=== PATIENT | female | born 1940 | race American Indian/Alaskan Native ===

== ENCOUNTER 2024-06-11 08:21 | Inpatient (IN) | payer OTHER, MEDICAID ==
[~2024-06-11] VITALS: Ht 149.9 cm; Wt 44.7 kg
[2024-06-11] VITALS (8 sets, daily range): BP systolic 121–143; BP diastolic 73–94; PULSE 100–117; RESP 17–95; TEMP 98.1–99.1; O2SAT 90–100
--- NOTE | 2024-06-11 08:59 | ED.PDOC ---
History of Present Illness HPI Comments 84-year-old female brought in by EMS from [facility] for a pulmonary consultation. Patient was diagnosed with multifocal pneumonia, given Zosyn and Levaquin and was transferred to higher level of care for a pulmonary consultation due to failed inpatient and outpatient treatment. Patient is non- hypoxic at this time. No other symptoms or modifying factors present at this time. Chief Complaint: Abdominal Pain Time Seen by MD: 08:40 Primary Care Provider: SURINDER Reviewed Notes: Medications, Allergies Allergies: Coded Allergies: Penicillins (Verified Allergy, Severe, 06/11/24) Sulfa Antibiotics (Verified Allergy, Severe, 06/11/24) Information Source: Transfer Record, Emergency Med Personnel Mode of Arrival: EMS Severity: Moderate Timing: Days Duration: Since onset Prehospital treatment: None Past Medical History PAST MEDICAL HISTORY: Denies Surgical History: Denies all surgeries [employer] RE[employer]ER History: Denies all [employer] Hx Family History Family History: Reviewed,noncontributory to illness Social History Smoker: Non-Smoker Alcohol: Denies ETOH Use Drugs: Denies Drug Use Lives In: Home Constitutional: denies: chills, diaphoresis, fatigue, fever, malaise, sweats, weakness, others EENTM: denies: blurred vision, double vision, ear bleeding, ear discharge, ear drainage, ear pain, ear ringing, eye pain, eye redness, hearing loss, mouth pain, mouth swelling, nasal discharge, nose bleeding, nose congestion, nose pain, photophobia, tearing, throat pain, throat swelling, voice changes, others Respiratory: reports: cough, shortness of breath; denies: hemoptysis, orthopnea, SOB at rest, SOB with excertion, stridor, wheezing, others Cardiovascular: denies: chest pain, dizzy spells, diaphoresis, Dyspnea on exertion, edema, irregular heart beat, left arm pain, lightheadedness, palpitations, PND, syncope, others Gastrointestinal: denies: abdomen distended, abdominal pain, blood streaked bowels, constipated, diarrhea, dysphagia, difficulty swallowing, hematemesis, melena, nausea, poor appetite, poor fluid intake, rectal bleeding, rectal pain, vomiting, others Genitourinary: denies: abnormal vagina bleeding, burning, dyspareunia, dysuria, flank pain, frequency, hematuria, incontinence, pain, , vagina disch arge, urgency, others Neurological: denies: dizziness, fainting, headache, left sided numbness, left sided weakness, numbness, paresthesia, pre-existing deficit, right sided numbness, right sided weakness, seizure, speech problems, tingling, tremors, weakness, others Musculoskeletal: denies: back pain, gout, joint pain, joint swelling, muscle pain, muscle stiffness, neck pain, others Integumetry: denies: bruises, change in color, change in hair/nails, dryness, laceration, lesions, lumps, rash, wounds, others Allergic/Immunocompromised: denies: Difficulty Healing, Frequent Infections, Hives, Itching, others Hematologic/Lymphatic: denies: anemia, blood clots, easy bleeding, easy bruising, swollen glands, others Endocrine: denies: excessive hunger, excessive sweating, excessive thirst, excessive urination, flushing, intolerance to cold, intolerance to heat, unexplained weight gain, unexplained weight loss, others Psychiatric: denies: anxiety, bipolar disorder, depression, hopeless, panic disorder, schizophrenia, sleepless, suicidal, others All Other Systems: Reviewed and Negative Physical Exam General Appearance: No Apparent Distress, Normal HEENT: Normal ENT Inspection, Pharynx Normal, TMs Normal Neck: Full Range of Motion, Non-Tender, Normal, Normal Inspection Respiratory: Chest Non-Tender, Lungs Clear, No Accessory Muscle Use, No Respiratory Distress, Normal Breath Sounds Cardiovascular: No Edema, No JVD, No Murmur, No Gallop, Normal Peripheral Pulses, Regular Rate/Rhythm Breast Exam: Deferred Gastrointestinal: No Organomegaly, Non Tender, No Pulsatile Mass, Normal Bowel Sounds, Soft Genitalia: Deferred Pelvic: Deferred Rectal: Deferred Extremities: No calf tenderness, Normal capillary refill, Normal inspection, Normal range of motion, Non-tender, No pedal edema Musculoskeletal : Apperance: Normal Neurologic: Alert, instructional developer II-XII nml as Tested, No Motor Deficits, Normal Affect, Normal Mood, No Sensory Deficits Cerebellar Function: Normal Reflexes: Normal Skin: Dry, Normal Color, Warm Lymphatic: No Adenopathy Was a procedure done? Was a procedure done?: No Differential Dx Considerations may include: Multifocal pneumonia X-Ray, Labs, Meds, VS Vital Signs Date Time Temp Pulse Resp B/P (MAP) Pulse Ox O2 Delivery O2 Flow Rate FiO2 06/11/24 08:55 100 20 92 Nasal Cannula* 2 28 06/11/24 08:55 99.1 100 20 143/94 (110) 92 99.1 06/11/24 08:21 98.4 69 16 153/90 (111) 97 Lab Test 06/11/24 09:00 Range/Units White Blood Count 4.7 4.4-10.8 10^3/uL Red Blood Count 4.11 4.0-5.20 10^6/uL Hemoglobin 11.5 L 12.2-16.2 g/dL Hematocrit 35.0 L 36.0-46.0 % Mean Corpuscular Volume 85.3 80.0-100.0 fL Mean Corpuscular Hemoglobin 27.9 L 28.0-32.0 pg Mean Corpuscular Hemoglobin Concent 32.7 32.0-36.0 g/dL Red Cell Distribution Width 18.2 H 11.8-14.3 % Platelet Count 308 140-450 10^3/uL Mean Platelet Volume 6.0 L 6.9-10.8 fL Neutrophils (%) (Auto) 37.0-80.0 % Lymphocytes (%) (Auto) 10.0-50.0 % Monocytes (%) (Auto) 0.0-12.0 % Basophils (%) (Auto) 0.0-2.0 % Neutrophils # (Auto) 1.6-8.6 10 ^3/uL Lymphocytes # (Auto) 0.4-5.4 10 ^3/uL Monocytes # (Auto) 0-1.3 10 ^3/uL Differential Total Cells Counted 100.0 100 Neutrophils % (Manual) 77 37.0-80.0 Band Neutrophils % (Manual) 4 Lymphocytes % (Manual) 10 10.0-50.0 Monocytes % (Manual) 8 0-12 Eosinophils % (Manual) 1 0-7 Basophils % (Manual) 0 0.0-2.0 Metamyelocytes % (manual) 0 Myelocytes % (Manual) 0 Promyelocytes % (Manual) 0 Blast Cells % (Manual) 0 Reactive Lymphocytes 0 Platelet Estimate Adequate Anisocytosis (manual) Slight Sodium Level 136 136-145 mmol/L Potassium Level 3.1 L 3.5-5.1 mmol/L Chloride Level 102 98-107 mmol/L Carbon Dioxide Level 25 20-31 mmol/L Anion Gap 9 5-15 Blood Urea Nitrogen 13 9-23 mg/dL Creatinine 1.01 0.550-1.02 mg/dL Glomerular Filtration Rate Calc 55 >90 mL/min BUN/Creatinine Ratio 12.9 10.0-20.0 Serum Glucose 77 74-106 mg/dL Calcium Level 9.0 8.7-10.4 mg/dL Total Bilirubin 0.4 0.2-1.0 mg/dL Aspartate Amino Transferase (AST) 17 13-40 U/L Alanine Aminotransferase (ALT) 19 7-40 U/L Alkaline Phosphatase 94 46-116 U/L Troponin I High Sensitivity 18 </=34 ng/L Total Protein 6.1 5.7-8.2 g/dL Albumin 3.8 3.2-4.8 g/dL Time of 1ST Reevaluation: 09:10 Reevaluation 1ST: Unchanged Patient Education/Counseling: Diagnosis, Treatment, Prognosis Family Education/Counseling: Diagnosis, Treatment, Prognosis Departure 1 Departure Time of Disposition: 10:44 (Patient was a transfer from outside hospital for mu ltifocal pneumonia. He already received sepsis treatment at the outside hospital.) Impression: Primary Impression: Multifocal pneumonia Additional Impression: Shortness of breath Disposition: ADMITTED INPATIENT Admit to: Med Surg Condition: Serious Critical Care Note Critical Care Time?: No Stability Stability form required: No I personally scribed for PREETI SAMAYOA MD ([email or web address]) on 06/11/24 at 08:59. Electronically submitted by Chris Quiroz [email or web address]). PREETI SAMAYOA MD Jun 11, 2024 08:59
[2024-06-11 09:26] LABS: Hemoglobin 11.5 g/dL (12.2-16.2); Mean Corpuscular Hemoglobin 27.9 pg (28.0-32.0); Mean Corpuscular Hgb Conc. 32.7 g/dL (32.0-36.0); Mean Corpuscular Volume 85.3 fL (80.0-100.0); Platelet Count (auto) 308 10^3/uL (140-450); Red Blood Cells 4.11 10^6/uL (4.0-5.20); Red Cell Distribution Width 18.2 % (11.8-14.3); White Blood Cell 4.7 10^3/uL (4.4-10.8)
[2024-06-11 09:29] LABS: Basophils % (manual) 0 (0.0-2.0); Blast Cells 0; Metamyelocytes % 0; Myelocytes % 0; Promyelocytes % 0; Reactive Lymphocytes 0
[2024-06-11 09:36] LABS: Alanine Aminotransferase 19 U/L (7-40); Albumin 3.8 g/dL (3.2-4.8); Alkaline Phosphatase 94 U/L (46-116); Anion Gap 9 (5-15); Aspartate Aminotransferase 17 U/L (13-40); BUN/Creatinine Ratio 12.9 (10.0-20.0); Blood Urea Nitrogen 13 mg/dL (9-23); Carbon Dioxide 25 mmol/L (20-31); Chloride 102 mmol/L (98-107); Glucose 77 mg/dL (74-106)
[2024-06-11 09:37] LABS: Bilirubin, Total 0.4 mg/dL (0.2-1.0); Total Protein 6.1 g/dL (5.7-8.2)
[2024-06-11 09:48] LABS: Potassium 3.1 mmol/L (3.5-5.1); Sodium 136 mmol/L (136-145)
--- NOTE | 2024-06-11 09:50 | DVH ---
CHEST RADIOGRAPH Indication: c/f multifocal pneumonia Technique: Single frontal view of the chest was obtained COMPARISON: None FINDINGS: Lines and Tubes: None Lungs: Bibasilar consolidations may reflect pneumonia or aspiration. Pleura: Small bilateral effusions. No pneumothorax. Cardiomediastinal contours: Unremarkable Bones: Unremarkable IMPRESSION: 1. Bibasilar consolidations may reflect pneumonia or aspiration. 2. Small bilateral effusions.
[2024-06-11 09:56] LABS: Band Neutrophils % (manual) 4; Eosinophils % (manual) 1 (0-7); Lymphocytes % (manual) 10 (10.0-50.0); Monocytes % (manual) 8 (0-12)
[2024-06-11 09:57] LABS: Anisocytosis Slight; Platelet Estimate Adequate
[2024-06-11] MEDS ORDERED: CEFEPIME 2GM/50ML NS 50 ML IV ONE (10:45)
[2024-06-11] MEDS: CEFEPIME 2GM/50ML NS 50 ML IV ONE (12:31)
[2024-06-11] MEDS: VANCOMYCIN 1GM/250ML KIT 200 ML IV ONE (13:06)
[2024-06-11] MEDS ORDERED: ACETAMINOPHEN 325 MG TAB PO PRN (15:15)
[2024-06-11] MEDS ORDERED: ALBUTEROL SULF 2.5 MG/0.5ML(0.5%) NEB SOLN NEB SCH (15:15)
[2024-06-11] MEDS ORDERED: NITROGLYCERIN 0.4 MG SL TAB SL PRN (15:15)
[2024-06-11] MEDS ORDERED: IPRATROPIUM BROM 0.5 MG/2.5ML INH SOL NEB SCH (15:15)
[2024-06-11] MEDS: methylPREDNISolone SOD SUCC 125 MG/2 ML VL IV SCH (16:08)
[2024-06-11] MEDS: guaiFENesin-CODEINE Liq 5 ML UD PO SCH (16:08)
--- NOTE | 2024-06-11 17:31 | DVHHP2 ---
Admitting Diagnosis: Multifocal Pneumonia History of Present Illness HPI Patient is a 84-year-old female with past medical history of COPD who was transferred from [facility] due to concerns of failed pneumonia treatment. Patient was recently admitted and seen at [facility] and was discharged 2 days prior. Patient notes that she began having bodyaches, abdominal pain and worsening shortness of breath. Patient returned to the ER for reevaluation. Patient was ultimately transferred to [facility] for pulmonary consultation. At bedside, patient complains of weakness, body aches and productive cough. Patient was reportedly started on sepsis protocol at [facility]. Patient was treated again with vancomycin and cefepime here at [facility]. At the time of my evaluat ion, patient did not have signs of severe sepsis. Chest x-ray showed bibasilar consolidations likely pneumonia or aspiration. There is also small bilateral pleural effusions. Patient reportedly had a CT abdomen done at [facility] which did not reveal any acute abnormalities. Patient was admitted for further treatment of multifocal pneumonia and pulmonary consultation. Past Medical History Pulmonary: COPD Review of Systems Constitutional: Weakness Pulmonary/Respiratory: Dyspnea, Cough Gastrointestinal: Nausea, Abdominal Pain H&P Exam Vital Signs Vital Signs Date Time Temp Pulse Resp B/P (MAP) Pulse Ox O2 Delivery O2 Flow Rate FiO2 06/11/24 16:44 80 20 100 Room Air 10.0 06/11/24 16:44 99.5 148/96 (113) 99.5 06/11/24 15:41 28 General Appeara: Mild distress Pulmonary/Respiratory: Crackles Cardiovascular/Chest: Regular rate Labs/Xrays Labs Test 06/11/24 11:30 06/11/24 09:00 Range/Units Lactic Acid Level 0.6 0.4-2.0 mmol/L White Blood Count 4.7 4.4-10.8 10^3/uL Red Blood Count 4.11 4.0-5.20 10^6/uL Hemoglobin 11.5 L 12.2-16.2 g/dL Hematocrit 35.0 L 36.0-46.0 % Mean Corpuscular Volume 85.3 80.0-100.0 fL Mean Corpuscular Hemoglobin 27.9 L 28.0-32.0 pg Mean Corpuscular Hemoglobin Concent 32.7 32.0-36.0 g/dL Red Cell Distribution Width 18.2 H 11.8-14.3 % Platelet Count 308 140-450 10^3/uL Mean Platelet Volume 6.0 L 6.9-10.8 fL Neutrophils (%) (Auto) 37.0-80.0 % Lymphocytes (%) (Auto) 10.0-50.0 % Monocytes (%) (Auto) 0.0-12.0 % Basophils (%) (Auto) 0.0-2.0 % Neutrophils # (Auto) 1.6-8.6 10 ^3/uL Lymphocytes # (Auto) 0.4-5.4 10 ^3/uL Monocytes # (Auto) 0-1.3 10 ^3/uL Differential Total Cells Counted 100.0 100 Neutrophils % (Manual) 77 37.0-80.0 Band Neutrophils % (Manual) 4 Lymphocytes % (Manual) 10 10.0-50.0 Monocytes % (Manual) 8 0-12 Eosinophils % (Manual) 1 0-7 Basophils % (Manual) 0 0.0-2.0 Metamyelocytes % (manual) 0 Myelocytes % (Manual) 0 Promyelocytes % (Manual) 0 Blast Cells % (Manual) 0 Reactive Lymphocytes 0 Platelet Estimate Adequate Anisocytosis (manual) Slight Sodium Level 136 136-145 mmol/L Potassium Level 3.1 L 3.5-5.1 mmol/L Chloride Level 102 98-107 mmol/L Carbon Dioxide Level 25 20-31 mmol/L Anion Gap 9 5-15 Blood Urea Nitrogen 13 9-23 mg/dL Creatinine 1.01 0.550-1.02 mg/dL Glomerular Filtration Rate Calc 55 >90 mL/min BUN/Creatinine Ratio 12.9 10.0-20.0 Serum Glucose 77 74-106 mg/dL Calcium Level 9.0 8.7-10.4 mg/dL Total Bilirubin 0.4 0.2-1.0 mg/dL Aspartate Amino Transferase (AST) 17 13-40 U/L Alanine Aminotransferase (ALT) 19 7-40 U/L Alkaline Phosphatase 94 46-116 U/L Troponin I High Sensitivity 18 </=34 ng/L B-Type Natriuretic Peptide 833.82 0-100 pg/mL Total Protein 6.1 5.7-8.2 g/dL Albumin 3.8 3.2-4.8 g/dL Assessment/Plan Primary Diagnosis 1. Multifocal Pneumonia 2' Diagnosis/Co-morbidities 2. History of COPD 3. Concern for Underlying CHF Plan -Admit to telemetry -Pulmonary consulted, Dr. Martin -Cardiology consulted, Dr. Madrid. TTE ordered -Levaquin 750mg IV qdaily -Duonebs, solumedrol as scheduled -Lasix 40mg IV x1 -Strict I/O -Procacitonin ordered -Influenza/COVID ordered -Pain medications listed per MAR -Full Code Plan discussed with: Patient HUAN HERNANDEZ DO Jun 11, 2024 17:31
[2024-06-11 18:21] LABS: COVID19 ANTIGEN SOFIA FIA NEGATIVE (NEGATIVE); Rapid Influenza A Negative (Negative); Rapid Influenza B Negative (Negative)
[2024-06-11] MEDS: FUROSEMIDE 40 MG/4 ML VIAL IV ONE (18:29)
[2024-06-11] MEDS: IPRATROPIUM BROM 0.5 MG/2.5ML INH SOL NEB SCH (19:08)
[2024-06-11] MEDS: ALBUTEROL SULF 2.5 MG/0.5ML(0.5%) NEB SOLN NEB SCH (19:08)
[2024-06-11 20:52] LABS: Urine Bacteria None Seen /hpf (None Seen)
[2024-06-11] MEDS: levoFLOXacin 250 MG TAB PO SCH (20:52)
[2024-06-11 20:56] LABS: Urine Blood Negative /uL (Negative); Urine Clarity Clear (Clear); Urine Color Colorless (Yellow); Urine Protein, UAD Negative (Negative); Urine Specific Gravity 1.014 (1.001-1.035); Urine Squamous Epithelial Cell None Seen /hpf (<5); Urine Urobilinogen Normal (Negative); Urine WBC 5 /HPF (0-5)
[2024-06-11] MEDS: HYDROcodone-ACET 5/325MG TAB PO PRN (22:09)
[2024-06-11] MEDS: POTASSIUM CHL 20 Meq TABLET PO ONE (22:09)
--- NOTE | 2024-06-11 23:41 | DVHINCON2 ---
Date of service: Jun 11, [address] Tony Martin Reason for Consultation Acute hypoxic respiratory failure, multifocal pneumonia, pleural effusion History of Present Illness Covering Dr. Tony Martin An 84-year-old woman with past medical history of COPD who was transferred from [facility] today due to concerns of failed pneumonia treatment. Patient was recently admitted at [place] [facility] and was discharged 2 days prior. Patient notes that she began having body aches, abdominal pain and worsening shortness of breath and returned to the ER for reevaluation. Patient was ultimately transferred to [facility] for pulmonary consultation. Patient complains of weakness, body aches and productive cough. She was reportedly started on sepsis protocol at [facility]. Chest x-ray showed bibasilar consolidations, likely pneumonia or aspiration, and small bilateral pleural effusions. CT abdomen at [facility] did not reveal any acute abnormalities. Patient was admitted for further treatment of multifocal pneumonia and pulmonary consultation is requested due to the above findings. Review of Systems: 14-point review of systems negative unless otherwise noted above. Past Medical History: COPD Past Surgical History: None Medications: Reviewed. Allergies: Penicillins and sulfa antibiotics. Family History: No family history of premature CAD. No family history of lung disorders. Social History: Nonsmoker. No alcohol or illicit drug use. Allergies: Coded Allergies: Penicillins (Verified Allergy, Severe, 06/11/24) Sulfa Antibiotics (Verified Allergy, Severe, 06/11/24) Current Medications Current Medications Medications (Trade) Dose Ordered Sig/Noe Route PRN Reason Start Time Stop Time Status Last Admin Acetaminophen (Tylenol Tablet) 325 mg Q4HP PRN PO MILD PAIN (1-3 PAIN SCALE) 06/11/24 15:15 Acetaminophen/ Hydrocodone Bitart ([place] 5/325MG Tab) 1 tab Q4HP PRN PO MODERATE PAIN (4-6 PAIN SCALE) 06/11/24 15:15 06/11/24 22:09 Enoxaparin Sodium (Lovenox) 30 mg DAILY SC 06/12/24 10:00 Morphine Sulfate 2 mg Q4HPRN PRN IV SEVERE PAIN (7-10 PAIN SCALE) 06/11/24 15:15 Nitroglycerin (Ntrostat Sublingual) 0.4 mg Q5MINP PRN SL FOR CHEST PAIN 06/11/24 15:15 Morphine Sulfate 2 mg Q30M PRN IV FOR CHEST PAIN 06/11/24 15:15 Ipratropium [place] (Atrovent Medneb) 0.5 mg Q6HR NEB 06/11/24 15:15 06/11/24 15:35 DC Albuterol (Ventolin Medneb) 5 mg Q6HR NEB 06/11/24 15:15 06/11/24 15:35 DC Methylprednisolone Sodium Succinate (Solu Medrol) 80 mg DAILY IV 06/11/24 15:15 06/11/24 16:08 Guaifenesin/ Codeine Phosphate (Robitussin/ Codeine Liq) 5 ml Q8HP PO 06/11/24 15:30 06/11/24 22:08 Albuterol (Ventolin Medneb) 5 mg Q6HR NEB 06/11/24 18:00 06/11/24 19:08 Ipratropium [place] (Atrovent Medneb) 0.5 mg Q6HR NEB 06/11/24 18:00 06/11/24 19:08 Levofloxacin/ Dextrose 150 ml @ 100 mls/hr DAILY IV 06/12/24 10:00 06/11/24 18:53 DC Levofloxacin (Levaquin Tablet) 750 mg Q48H PO 06/11/24 20:00 06/11/24 20:52 Vital Signs Vital Signs Date Time Temp Pulse Resp B/P (MAP) Pulse Ox O2 Delivery O2 Flow Rate FiO2 06/11/24 20:14 100 19 99 Nasal Cannula* 2 28 06/11/24 19:30 98.9 137/89 (105) 98.9 Physical Exam Gen.: Patient lying in bed in no apparent distress. On supplemental oxygen. Head: Normocephalic, atraumatic. Eyes: EOMI/PERRLA. Ears: Normal hearing. Normal anatomy. Neck/trachea: Trachea midline, supple. Nose: Normal external anatomy. Mouth: Moist mucous membranes. Chest: Decreased air entry bilaterally. No wheezing or rhonchi. Cardiovascular: Positive S1, positive S2. Regular rate and rhythm. Abdomen: Positive bowel sounds in all 4 quadrants. Soft, non-tender, non- distended. : Deferred. Rectal: Deferred. Skin: Warm, dry. Intact. Extremities: 2+ radial pulses bilaterally. No lower extremity edema. Neuro: Awake, alert, oriented x3. No gross motor or sensory deficits. Cranial nerves II through XII intact. Gait not assessed. Labs/Diagnostic Data Labs Test 06/11/24 20:50 06/11/24 17:42 06/11/24 11:30 06/11/24 09:00 Range/Units Urine Color Colorless Yellow Urine Clarity Clear Clear Urine pH 7.0 5.0-9.0 Urine Specific [place] 1.014 1.001-1.035 Urine Protein Negative Negative Urine Ketones Negative Negative Urine Blood Negative Negative /uL Urine Nitrite Negative Negative Urine Bilirubin Negative Negative Urine Urobilinogen Normal Negative mg/dL Urine Leukocyte Esterase Negative Negative /uL Urine RBC 2 0 - 4 /hpf Urine Microscopic WBC 5 0-5 /HPF Urine Squamous Epithelial Cells None seen <5 /hpf Urine Bacteria None seen None Seen /hpf Urine Glucose Normal Normal mg/dL Influenza Type A Antigen Negative Negative Influenza Type B Antigen Negative Negative SARS-CoV-2 Antigen (Rapid) Negative NEGATIVE Lactic Acid Level 0.6 0.4-2.0 mmol/L White Blood Count 4.7 4.4-10.8 10^3/uL Red Blood Count 4.11 4.0-5.20 10^6/uL Hemoglobin 11.5 L 12.2-16.2 g/dL Hematocrit 35.0 L 36.0-46.0 % Mean Corpuscular Volume 85.3 80.0-100.0 fL Mean Corpuscular Hemoglobin 27.9 L 28.0-32.0 pg Mean Corpuscular Hemoglobin Concent 32.7 32.0-36.0 g/dL Red Cell Distribution Width 18.2 H 11.8-14.3 % Platelet Count 308 140-450 10^3/uL Mean Platelet Volume 6.0 L 6.9-10.8 fL Neutrophils (%) (Auto) 37.0-80.0 % Lymphocytes (%) (Auto) 10.0-50.0 % Monocytes (%) (Auto) 0.0-12.0 % Basophils (%) (Auto) 0.0-2.0 % Neutrophils # (Auto) 1.6-8.6 10 ^3/uL Lymphocytes # (Auto) 0.4-5.4 10 ^3/uL Monocytes # (Auto) 0-1.3 10 ^3/uL Differential Total Cells Counted 100.0 100 Neutrophils % (Manual) 77 37.0-80.0 Band Neutrophils % (Manual) 4 Lymphocytes % (Manual) 10 10.0-50.0 Monocytes % (Manual) 8 0-12 Eosinophils % (Manual) 1 0-7 Basophils % (Manual) 0 0.0-2.0 Metamyelocytes % (manual) 0 Myelocytes % (Manual) 0 Promyelocytes % (Manual) 0 Blast Cells % (Manual) 0 Reactive Lymphocytes 0 Platelet Estimate Adequate Anisocytosis (manual) Slight Sodium Level 136 136-145 mmol/L Potassium Level 3.1 L 3.5-5.1 mmol/L Chloride Level 102 98-107 mmol/L Carbon Dioxide Level 25 20-31 mmol/L Anion Gap 9 5-15 Blood Urea Nitrogen 13 9-23 mg/dL Creatinine 1.01 0.550-1.02 mg/dL Glomerular Filtration Rate Calc 55 >90 mL/min BUN/Creatinine Ratio 12.9 10.0-20.0 Serum Glucose 77 74-106 mg/dL Calcium Level 9.0 8.7-10.4 mg/dL Total Bilirubin 0.4 0.2-1.0 mg/dL Aspartate Amino Transferase (AST) 17 13-40 U/L Alanine Aminotransferase (ALT) 19 7-40 U/L Alkaline Phosphatase 94 46-116 U/L Troponin I High Sensitivity 18 </=34 ng/L B-Type Natriuretic Peptide 833.82 0-100 pg/mL Total Protein 6.1 5.7-8.2 g/dL Albumin 3.8 3.2-4.8 g/dL Assessment Impression: Acute hypoxic respiratory failure Dependence on supplemental oxygen Multifocal pneumonia, likely gram negative Pleural effusion Atelectasis Covering Dr. Tony Martin Plan: Supplemental oxygen 2 LPM NC Titrate to keep O2 sats above 92%. Taper O2 as tolerated. CXR reviewed, demonstrates bibasilar opacities and small bilateral pleural effusions and atelectasis Continue bronchodilators. Continue antibiotics IV steroids Antitussive PRN cough Incentive spirometry Follow up cultures Diurese to euvolemia Monitor renal function. Monitor electrolytes. Supplement as necessary. Supplement potassium Monitor ins and outs. DVT prophylaxis. Prognosis: Poor given patient's multiple co-morbidities. Rest of plan per hospitalist and other consultants. A total of 76 minutes of clinical care time was spent reviewing the patient record, examining the patient, making a diagnostic and therapeutic plan, discussing this plan with the medical personnel, following up on diagnostic studies and following the patient for clinical stability excluding any and all procedures. At least 50% of this time was spent in direct, [id number] contact. Thank you, Dr. Tobar, for allowing me to participate in this patient's care. Further recommendations will depend on the patient's clinical course. Please do not hesitate to contact me if you have any questions or concerns. This medical document was created using an electronic medical record system with [employer] dictation system. Although these documentations are being carefully reviewed, there may still be some phonetic and typographical changes. The errors are purely typographical, due to imperfection on the software program , and do not reflect any compromise in the patient's medical care. Plan discussed with: Patient, Other (RN/Dr. Martin) TRAVIS LEVINE MD Jun 11, 2024 23:41
[2024-06-12] VITALS (17 sets, daily range): BP systolic 93–136; BP diastolic 74–87; PULSE 60–84; RESP 16–20; TEMP 97.6–98.1; O2SAT 93–100
[2024-06-12] MEDS: MORPHINE SULFATE INJ 2 MG/ml SYRG IV PRN ×2 (01:34→17:06)
[2024-06-12] MEDS: LACTULOSE 20Gm/30ML SOLN PO ONE (04:47)
[2024-06-12 08:01] LABS: Alanine Aminotransferase 21 U/L (7-40); Albumin 4.3 g/dL (3.2-4.8); Alkaline Phosphatase 102 U/L (46-116); Anion Gap 10 (5-15); Aspartate Aminotransferase 15 U/L (13-40); BUN/Creatinine Ratio 12.8 (10.0-20.0); Bilirubin, Total 0.4 mg/dL (0.2-1.0); Blood Urea Nitrogen 18 mg/dL (9-23); Calcium 9.7 mg/dL (8.7-10.4); Carbon Dioxide 27 mmol/L (20-31); Chloride 101 mmol/L (98-107); Glucose 81 mg/dL (74-106); Potassium 3.6 mmol/L (3.5-5.1); Sodium 138 mmol/L (136-145)
[2024-06-12 08:04] LABS: Hematocrit 38.5 % (36.0-46.0); Hemoglobin 12.5 g/dL (12.2-16.2); Mean Corpuscular Hemoglobin 28.2 pg (28.0-32.0); Mean Corpuscular Hgb Conc. 32.5 g/dL (32.0-36.0); Mean Corpuscular Volume 86.9 fL (80.0-100.0); Platelet Count (auto) 318 10^3/uL (140-450); Red Blood Cells 4.43 10^6/uL (4.0-5.20); Red Cell Distribution Width 18.6 % (11.8-14.3); White Blood Cell 4.4 10^3/uL (4.4-10.8)
[2024-06-12 08:08] LABS: Basophils % (manual) 0 (0.0-2.0); Blast Cells 0; Eosinophils % (manual) 0 (0-7); Metamyelocytes % 0; Myelocytes % 0; Promyelocytes % 0; Reactive Lymphocytes 0
[2024-06-12 08:55] LABS: Anisocytosis Slight; Band Neutrophils % (manual) 4; Lymphocytes % (manual) 11 (10.0-50.0); Monocytes % (manual) 10 (0-12); Platelet Estimate Adequate
--- NOTE | 2024-06-12 09:15 | DVHINCON2 ---
Date of service: Jun 12, 2024 Referring Physician pulm ref by dr buchanan dictated [id number] add 1 zithrimax 500 i v q d 2 add c t scan chest without contrast 3 g f r is low imp bilateral pneum onia 2 resp failure 3 c o p d exacerbation 4 r / o c h f / cor pulmonale thank you case discussed with dr buchanan Family History: Patient reports no known family medical history. Allergies: Coded Allergies: Penicillins (Verified Allergy, Severe, 06/11/24) Sulfa Antibiotics (Verified Allergy, Severe, 06/11/24) Home Meds Active Scripts Amoxicillin & Pot Clavulanate (AUGMENTIN TABLET) 875 Mg Tb, 875 MG PO BID for 10 Days, #20 TAB Prov:ANU JI MD 06/15/24 Reported Medications Tiotropium [place] Monohydrate (Spiriva Handihaler) 18 Mcg Cap, 2.5 MCG IN, CAP 06/12/24 Levothyroxine Sodium (Levothyroxine Sodium) 125 Mcg Tab, 125 MCG PO QAM for 30 Days, MCG 06/12/24 Albuterol Sulfate (Albuterol Sulfate) 2 Mg Tab, 0.25 PO Q6HP, MG 06/12/24 Aspirin (Aspirin) 325 Mg Tab, 81 MG PO DAILY for 30 Days, MG 06/12/24 Levofloxacin Hemihydrate (LEVOFLOXACIN) 500 Mg Tab, 500 MG PO DAILY, MG 06/12/24 Current Medications Current Medications Medications (Trade) Dose Ordered Sig/Noe Route PRN Reason Start Time Stop Time Status Last Admin Acetaminophen (Tylenol Tablet) 325 mg Q4HP PRN PO MILD PAIN (1-3 PAIN SCALE) 06/11/24 15:15 Acetaminophen/ Hydrocodone Bitart ([place] 5/325MG Tab) 1 tab Q4HP PRN PO MODERATE PAIN (4-6 PAIN SCALE) 06/11/24 15:15 06/11/24 22:09 Enoxaparin Sodium (Lovenox) 30 mg DAILY SC 06/12/24 10:00 Morphine Sulfate 2 mg Q4HPRN PRN IV SEVERE PAIN (7-10 PAIN SCALE) 06/11/24 15:15 06/12/24 01:34 Nitroglycerin (Ntrostat Sublingual) 0.4 mg Q5MINP PRN SL FOR CHEST PAIN 06/11/24 15:15 Morphine Sulfate 2 mg Q30M PRN IV FOR CHEST PAIN 06/11/24 15:15 Ipratropium [place] (Atrovent Medneb) 0.5 mg Q6HR NEB 06/11/24 15:15 06/11/24 15:35 DC Albuterol (Ventolin Medneb) 5 mg Q6HR NEB 06/11/24 15:15 06/11/24 15:35 DC Methylprednisolone Sodium Succinate (Solu Medrol) 80 mg DAILY IV 06/11/24 15:15 06/11/24 16:08 Guaifenesin/ Codeine Phosphate (Robitussin/ Codeine Liq) 5 ml Q8HP PO 06/11/24 15:30 06/12/24 06:42 Albuterol (Ventolin Medneb) 5 mg Q6HR NEB 06/11/24 18:00 06/12/24 07:00 Ipratropium [place] (Atrovent Medneb) 0.5 mg Q6HR NEB 06/11/24 18:00 06/12/24 07:00 Levofloxacin/ Dextrose 150 ml @ 100 mls/hr DAILY IV 06/12/24 10:00 06/11/24 18:53 DC Levofloxacin (Levaquin Tablet) 750 mg Q48H PO 06/11/24 20:00 06/11/24 20:52 Vital Signs Vital Signs Date Time Temp Pulse Resp B/P (MAP) Pulse Ox O2 Delivery O2 Flow Rate FiO2 06/12/24 08:00 97.6 73 20 134/75 (94) 94 97.6 06/12/24 07:01 Nasal Cannula* 3 32 Labs/Diagnostic Data Labs Test 06/12/24 06:49 06/11/24 20:50 06/11/24 17:42 06/11/24 11:30 Range/Units White Blood Count 4.4 4.4-10.8 10^3/uL Red Blood Count 4.43 4.0-5.20 10^6/uL Hemoglobin 12.5 12.2-16.2 g/dL Hematocrit 38.5 36.0-46.0 % Mean Corpuscular Volume 86.9 80.0-100.0 fL Mean Corpuscular Hemoglobin 28.2 28.0-32.0 pg Mean Corpuscular Hemoglobin Concent 32.5 32.0-36.0 g/dL Red Cell Distribution Width 18.6 H 11.8-14.3 % Platelet Count 318 140-450 10^3/uL Mean Platelet Volume 6.1 L 6.9-10.8 fL Neutrophils (%) (Auto) 37.0-80.0 % Lymphocytes (%) (Auto) 10.0-50.0 % Monocytes (%) (Auto) 0.0-12.0 % Basophils (%) (Auto) 0.0-2.0 % Neutrophils # (Auto) 1.6-8.6 10 ^3/uL Lymphocytes # (Auto) 0.4-5.4 10 ^3/uL Monocytes # (Auto) 0-1.3 10 ^3/uL Differential Total Cells Counted 100.0 100 Neutrophils % (Manual) 75 37.0-80.0 Band Neutrophils % (Manual) 4 Lymphocytes % (Manual) 11 10.0-50.0 Monocytes % (Manual) 10 0-12 Eosinophils % (Manual) 0 0-7 Basophils % (Manual) 0 0.0-2.0 Metamyelocytes % (manual) 0 Myelocytes % (Manual) 0 Promyelocytes % (Manual) 0 Blast Cells % (Manual) 0 Reactive Lymphocytes 0 Platelet Estimate Adequate Anisocytosis (manual) Slight Sodium Level 138 136-145 mmol/L Potassium Level 3.6 3.5-5.1 mmol/L Chloride Level 101 98-107 mmol/L Carbon Dioxide Level 27 20-31 mmol/L Anion Gap 10 5-15 Blood Urea Nitrogen 18 9-23 mg/dL Creatinine 1.41 #H 0.550-1.02 mg/dL Glomerular Filtration Rate Calc 37 >90 mL/min BUN/Creatinine Ratio 12.8 10.0-20.0 Serum Glucose 81 74-106 mg/dL Calcium Level 9.7 8.7-10.4 mg/dL Total Bilirubin 0.4 0.2-1.0 mg/dL Aspartate Amino Transferase (AST) 15 13-40 U/L Alanine Aminotransferase (ALT) 21 7-40 U/L Alkaline Phosphatase 102 46-116 U/L Total Protein 7.0 5.7-8.2 g/dL Albumin 4.3 3.2-4.8 g/dL Urine Color Colorless Yellow Urine Clarity Clear Clear Urine pH 7.0 5.0-9.0 Urine Specific [place] 1.014 1.001-1.035 Urine Protein Negative Negative Urine Ketones Negative Negative Urine Blood Negative Negative /uL Urine Nitrite Negative Negative Urine Bilirubin Negative Negative Urine Urobilinogen Normal Negative mg/dL Urine Leukocyte Esterase Negative Negative /uL Urine RBC 2 0 - 4 /hpf Urine Microscopic WBC 5 0-5 /HPF Urine Squamous Epithelial Cells None seen <5 /hpf Urine Bacteria None seen None Seen /hpf Urine Glucose Normal Normal mg/dL Influenza Type A Antigen Negative Negative Influenza Type B Antigen Negative Negative SARS-CoV-2 Antigen (Rapid) Negative NEGATIVE Lactic Acid Level 0.6 0.4-2.0 mmol/L Test 06/11/24 09:00 Range/Units Troponin I High Sensitivity 18 </=34 ng/L B-Type Natriuretic Peptide 833.82 0-100 pg/mL Plan discussed with: Patient MEME TRACEY MD Jun 12, 2024 09:15
[2024-06-12] MEDS ORDERED: levoFLOXacin 750MG 150 ML IV SCH (10:00)
--- NOTE | 2024-06-12 10:20 | DVHINCON2 ---
DATE OF CONSULTATION: 06/12/2024 HISTORY OF PRESENT ILLNESS: The patient is an 84-year-old female with a long history of COPD smoking in the past, transferred from [facility] for bilateral pneumonia, headaches, shortness of breath, hypoxemia. She has a nasal cannula at this time and bilateral pneumonia. CT done at [facility] did not reveal any abnormalities and admitted here for further management. PHYSICAL EXAMINATION: VITAL SIGNS: She is afebrile, heart rate is 88, blood pressure is 140/70. She is on 3 liters of oxygen at this time, maintaining O2 saturation above 92%. HEENT: Benign. NECK: Trachea is central. LUNGS: Diminished breath sounds bilaterally on examination and rales and rhonchi in both lung rosales. Diminished breath sounds at the bases. LABORATORY DATA: Lactic acid 8.6, white count 4.7, hemoglobin 11.5. COVID is negative. SARS, influenza A and B are negative. Potassium has come up to 3.6 now, was low when she came in. IMPRESSION: Bilateral pneumonia, chronic obstructive pulmonary disease exacerbation, respiratory failure, hypoxemia. PLAN: She is getting Levaquin 750 every 48 hours, guanfacine p.r.n., Solu-Medrol 80 every day, DuoNeb treatments. Continue all the medications she is on at this time. Agree with your plan and management. He Martin MD MA/KARMEN/GATITO TID: [id number] RECEIPT: [id number]
--- NOTE | 2024-06-12 10:31 | DVH ---
INDICATION: KASSIE TECHNIQUE: Multiple real-time sonographic images of the kidneys and bladder were obtained. COMPARISON: None FINDINGS: The right kidney measures 12 cm in length, which is normal in size. There is normal echogenicity of t he right kidney. The left kidney measures 11 cm in length, which is normal in size. There is normal echogenicity of th e left kidney. No large intraluminal masses are seen in the bladder. Moderate bilateral hydronephrosis. IMPRESSION: Moderate bilateral hydronephrosis.
[2024-06-12] MEDS: ENOXAPARIN SOD 30 MG/0.3 ML SYRINGE SC SCH (10:34)
[2024-06-12] MEDS: AZITHROMYCIN 500MG/ 250ML 250 ML IV SCH (10:40)
--- NOTE | 2024-06-12 12:24 | DVH ---
Procedure: CT CHEST WITHOUT CONTRAST Reason for study/Clinical History: Multlifocal pneumonia Comparison Study: None available at time of dictation. Exam Date: 06/12/2024 10:58 AM TECHNIQUE: Multidetector CT of the chest was performed from the lung apices to the upper abdomen with out the use of intravenous contract. Axial, coronal and sagittal multiplanar reformats were performed . Radiation Dose Information: CT Dose: CTDI volume is [CTDIvol] mGy. Dose-length product is [DLP] mGy*cm The dose indicators for CT are the volume Computed Tomography (CT) Dose Index (CTDIvol) and the Dose Length Product (DLP), and are measured in units of mGy and mGy-cm, respectively. These indicators are not patient dose, but values generated from the CT scanner acquisition factors. The report includes radiation exposure data for exposures received during this examination. FINDINGS: Lower neck: Normal thyroid. Lungs: Mild focal infiltrate right lower lobe. There is bronchial wall thickening in both lower lung zones. Heart/Vascular Structures: Heart size is enlarged without pericardial effusion. There is a lipoma in the right atrium. The aorta is tortuous but nonaneurysmal. Lymph Nodes: No adenopathy Pleura: Pleural thickening in the lung bases. Small right pleural effusion Musculoskeletal: No acute osseous abnormality. Soft tissues: Normal. Upper abdomen: Retrocardiac hiatal hernia. Moderate bilateral hydronephrosis. IMPRESSION: 1. Focal infiltrate right lower lobe. Bilateral lower lobe bronchiectasis. Small right pleural effusi on. 2. Cardiomegaly. 3. Retrocardiac hiatal hernia. Moderate bilateral hydronephrosis. Radiation optimization: All CT scans at this facility use at least one of these dose optimization diamond hniques: automated exposure control mA and/or kV adjustment per patient size (includes targeted exam s where dose is matched to clinical indication) or iterative reconstruction.
--- NOTE | 2024-06-12 13:36 | DVHPN2 ---
Progress Note - Dictate Date Seen: Jun 12, 2024 Medical Necessity Reason Pt with a Central, PICC or Fol: No Subjective Patient continues to complain of weakness and abdominal pain. vital signs Vital Sign Date Time Temp Pulse Resp B/P (MAP) Pulse Ox O2 Delivery O2 Flow Rate FiO2 06/12/24 11:37 60 18 97 06/12/24 11:30 Nasal Cannula* 3 32 06/12/24 08:00 97.6 134/75 (94) 97.6 Total Intake and Output 06/11/24 06/11/24 06/12/24 15:00 23:00 07:00 Intake Total 50 ml 500 ml Balance 50 ml 500 ml medications Current Medications Medications Dose Ordered Sig/Noe Route Start Time Stop Time Status Last Admin Dose Admin Acetaminophen 325 mg Q4HP PRN PO 06/11/24 15:15 Acetaminophen/ Hydrocodone Bitart 1 tab Q4HP PRN PO 06/11/24 15:15 06/11/24 22:09 1 TAB Enoxaparin Sodium 30 mg DAILY SC 06/12/24 10:00 06/12/24 10:34 30 MG Morphine Sulfate 2 mg Q4HPRN PRN IV 06/11/24 15:15 06/12/24 01:34 2 MG Nitroglycerin 0.4 mg Q5MINP PRN SL 06/11/24 15:15 Morphine Sulfate 2 mg Q30M PRN IV 06/11/24 15:15 Methylprednisolone Sodium Succinate 80 mg DAILY IV 06/11/24 15:15 06/12/24 10:34 80 MG Guaifenesin/ Codeine Phosphate 5 ml Q8HP PO 06/11/24 15:30 06/12/24 06:42 5 ML Albuterol 5 mg Q6HR NEB 06/11/24 18:00 06/12/24 11:30 5 MG Ipratropium [place] 0.5 mg Q6HR NEB 06/11/24 18:00 06/12/24 11:30 0.5 MG Levofloxacin 750 mg Q48H PO 06/11/24 20:00 06/11/24 20:52 750 MG Azithromycin 250 ml @ 125 mls/hr DAILY IV 06/12/24 10:00 06/12/24 10:40 125 MLS/HR objective General appearance: Frail appearing Respiratory: Coarse breath sounds Cardiovascular: Regular rate and rhythm, no murmurs. No edema Abdomen: Soft, nondistended, nontender, bowel sounds present MSK: Normal range of motion. Neuro: Alert Psych: Appropriate mood and affect. laboratory and microbiology Laboratory Tests 06/12/24 06:49 Test 06/12/24 06:49 Range/Units Serum Glucose 81 74-106 mg/dL Assessment/Plan Primary Diagnosis 1. Multifocal Pneumonia 2' Diagnosis/Co-morbidities 2. History of COPD 3. Concern for Underlying CHF Plan -Admit to telemetry -Pulmonary consulted, Dr. Martin -CT chest consistent with pneumonia, pleural effusion -Cardiology consulted, Dr. Madrid. TTE ordered -Levaquin 750mg IV qdaily. Azithromycin 500mg IV daily for 3 days added for anti-inflammation -Duonebs, solumedrol as scheduled -Strict I/O -Procacitonin ordered -Nephrology consulted for KASSIE, likely due to diuresis with lasix 40mg x1 complicated by hydronephrosis -Urology consulted for bilateral hydronephrosis. Dietz placed. -Influenza/COVID ordered, negative -Pain medications listed per JUL -Full Code Plan discussed with: Patient HUAN HERNANDEZ DO Jun 12, 2024 13:36
--- NOTE | 2024-06-12 16:37 | DVHINCON2 ---
Date of service: Jun 12, [address] Tobar Reason for Consultation Acute kidney Injury History of Present Illness Patient is 84 y/o female with PMH of CHF, bladder cancer status post cystectomy and urostomy with self catheterization is transferred from [facility] for multifocal pneumonia. Hospital course is noted for increasing BUN and creatinine. Past Medical History CHF, bladder cancer Past Surgical History Cystectomy and urostomy Allergies: Coded Allergies: Penicillins (Verified Allergy, Severe, 06/11/24) Sulfa Antibiotics (Verified Allergy, Severe, 06/11/24) Home Meds Reported Medications Tiotropium [place] Monohydrate (Spiriva Handihaler) 18 Mcg Cap, 2.5 MCG IN, CAP 06/12/24 Levothyroxine Sodium (Levothyroxine Sodium) 125 Mcg Tab, 125 MCG PO QAM for 30 Days, MCG 06/12/24 Albuterol Sulfate (Albuterol Sulfate) 2 Mg Tab, 0.25 PO Q6HP, MG 06/12/24 Aspirin (Aspirin) 325 Mg Tab, 81 MG PO DAILY for 30 Days, MG 06/12/24 Levofloxacin Hemihydrate (LEVOFLOXACIN) 500 Mg Tab, 500 MG PO DAILY, MG 06/12/24 Current Medications Current Medications Medications (Trade) Dose Ordered Sig/Noe Route PRN Reason Start Time Stop Time Status Last Admin Potassium Chloride 100 ml @ 50 mls/hr Q2H IV 06/13/24 13:45 06/13/24 19:44 Family History: Patient reports no known family medical history. Review of Systems All 12 item review of systems reviewed with the patient nonsignificant except what is mentioned in the history of present illness H&P Exam Vital Signs/I&O Vital Sign Date Time Temp Pulse Resp B/P (MAP) Pulse Ox O2 Delivery O2 Flow Rate FiO2 06/13/24 13:00 97.5 62 20 127/81 (96) 92 97.5 06/13/24 10:00 Nasal Cannula* 3 32 Intake and Output 06/12/24 06/13/24 18:59 06:59 Intake Total 650 ml 240 ml Output Total 275 ml 125 ml Balance 375 ml 115 ml Intake Oral 400 ml 240 ml IV Total 250 ml Output Urine Total 275 ml 125 ml # Bowel Movements 3 Physical Exam Patient is awake alert appeared cachectic Lungs clear to auscultation bilaterally Cardiac exam regular rate and rhythm GI soft nontender urostomy opening Extremity no clubbing cyanosis or edema Neuro nonfocal Labs/Diagnostic Data Labs/Diagnostic Data Laboratory Tests Test 06/13/24 10:17 06/12/24 23:06 06/12/24 22:15 06/12/24 06:49 Range/Units White Blood Count 5.4 4.4 4.4-10.8 10^3/uL Red Blood Count 4.50 4.43 4.0-5.20 10^6/uL Hemoglobin 12.6 12.5 12.2-16.2 g/dL Hematocrit 38.8 38.5 36.0-46.0 % Mean Corpuscular Volume 86.3 86.9 80.0-100.0 fL Mean Corpuscular Hemoglobin 28.0 28.2 28.0-32.0 pg Mean Corpuscular Hemoglobin Concent 32.4 32.5 32.0-36.0 g/dL Red Cell Distribution Width 18.4 H 18.6 H 11.8-14.3 % Platelet Count 298 318 140-450 10^3/uL Mean Platelet Volume 6.0 L 6.1 L 6.9-10.8 fL Neutrophils (%) (Auto) 82.8 H 37.0-80.0 % Lymphocytes (%) (Auto) 9.4 L 10.0-50.0 % Monocytes (%) (Auto) 6.8 0.0-12.0 % Eosinophils (%) (Auto) 0.5 0.0-7.0 % Basophils (%) (Auto) 0.5 0.0-2.0 % Neutrophils # (Auto) 4.5 1.6-8.6 10 ^3/uL Lymphocytes # (Auto) 0.5 0.4-5.4 10 ^3/uL Monocytes # (Auto) 0.4 0-1.3 10 ^3/uL Eosinophils # (Auto) 0 0-0.8 10 ^3/uL Basophils # (Auto) 0 0-0.2 10 ^3/uL Nucleated Red Blood Cells 0.1 % Sodium Level 139 138 136-145 mmol/L Potassium Level 2.6 L 3.6 3.5-5.1 mmol/L Chloride Level 101 101 98-107 mmol/L Carbon Dioxide Level 25 27 20-31 mmol/L Anion Gap 13 10 5-15 Blood Urea Nitrogen 18 18 9-23 mg/dL Creatinine 1.14 H 1.41 #H 0.550-1.02 mg/dL Glomerular Filtration Rate Calc 48 37 >90 mL/min BUN/Creatinine Ratio 15.8 12.8 10.0-20.0 Serum Glucose 148 H 81 74-106 mg/dL Calcium Level 9.7 9.7 8.7-10.4 mg/dL Total Bilirubin 0.3 0.4 0.2-1.0 mg/dL Aspartate Amino Transferase (AST) 14 15 13-40 U/L Alanine Aminotransferase (ALT) 18 21 7-40 U/L Alkaline Phosphatase 99 102 46-116 U/L Total Protein 6.2 7.0 5.7-8.2 g/dL Albumin 4.0 4.3 3.2-4.8 g/dL Troponin I High Sensitivity 12 12 </=34 ng/L Differential Total Cells Counted 100.0 100 Neutrophils % (Manual) 75 37.0-80.0 Band Neutrophils % (Manual) 4 Lymphocytes % (Manual) 11 10.0-50.0 Monocytes % (Manual) 10 0-12 Eosinophils % (Manual) 0 0-7 Basophils % (Manual) 0 0.0-2.0 Metamyelocytes % (manual) 0 Myelocytes % (Manual) 0 Promyelocytes % (Manual) 0 Blast Cells % (Manual) 0 Reactive Lymphocytes 0 Platelet Estimate Adequate Anisocytosis (manual) Slight Phosphorus Level 3.6 2.4-5.1 mg/dL Magnesium Level 2.1 1.6-2.6 mg/dL Vitamin D 25-Hydroxy 48.0 30.0-100 ng/mL Parathyroid Hormone (Intact) 262.4 H 18.4-80.1 pg/mL Test 06/11/24 20:50 06/11/24 17:42 06/11/24 11:30 06/11/24 09:00 Range/Units Urine Color Colorless Yellow Urine Clarity Clear Clear Urine pH 7.0 5.0-9.0 Urine Specific [place] 1.014 1.001-1.035 Urine Protein Negative Negative Urine Ketones Negative Negative Urine Blood Negative Negative /uL Urine Nitrite Negative Negative Urine Bilirubin Negative Negative Urine Urobilinogen Normal Negative mg/dL Urine Leukocyte Esterase Negative Negative /uL Urine RBC 2 0 - 4 /hpf Urine Microscopic WBC 5 0-5 /HPF Urine Squamous Epithelial Cells None seen <5 /hpf Urine Bacteria None seen None Seen /hpf Urine Glucose Normal Normal mg/dL Influenza Type A Antigen Negative Negative Influenza Type B Antigen Negative Negative SARS-CoV-2 Antigen (Rapid) Negative NEGATIVE Lactic Acid Level 0.6 0.4-2.0 mmol/L White Blood Count 4.7 4.4-10.8 10^3/uL Red Blood Count 4.11 4.0-5.20 10^6/uL Hemoglobin 11.5 L 12.2-16.2 g/dL Hematocrit 35.0 L 36.0-46.0 % Mean Corpuscular Volume 85.3 80.0-100.0 fL Mean Corpuscular Hemoglobin 27.9 L 28.0-32.0 pg Mean Corpuscular Hemoglobin Concent 32.7 32.0-36.0 g/dL Red Cell Distribution Width 18.2 H 11.8-14.3 % Platelet Count 308 140-450 10^3/uL Mean Platelet Volume 6.0 L 6.9-10.8 fL Neutrophils (%) (Auto) 37.0-80.0 % Lymphocytes (%) (Auto) 10.0-50.0 % Monocytes (%) (Auto) 0.0-12.0 % Basophils (%) (Auto) 0.0-2.0 % Neutrophils # (Auto) 1.6-8.6 10 ^3/uL Lymphocytes # (Auto) 0.4-5.4 10 ^3/uL Monocytes # (Auto) 0-1.3 10 ^3/uL Differential Total Cells Counted 100.0 100 Neutrophils % (Manual) 77 37.0-80.0 Band Neutrophils % (Manual) 4 Lymphocytes % (Manual) 10 10.0-50.0 Monocytes % (Manual) 8 0-12 Eosinophils % (Manual) 1 0-7 Basophils % (Manual) 0 0.0-2.0 Metamyelocytes % (manual) 0 Myelocytes % (Manual) 0 Promyelocytes % (Manual) 0 Blast Cells % (Manual) 0 Reactive Lymphocytes 0 Platelet Estimate Adequate Anisocytosis (manual) Slight Sodium Level 136 136-145 mmol/L Potassium Level 3.1 L 3.5-5.1 mmol/L Chloride Level 102 98-107 mmol/L Carbon Dioxide Level 25 20-31 mmol/L Anion Gap 9 5-15 Blood Urea Nitrogen 13 9-23 mg/dL Creatinine 1.01 0.550-1.02 mg/dL Glomerular Filtration Rate Calc 55 >90 mL/min BUN/Creatinine Ratio 12.9 10.0-20.0 Serum Glucose 77 74-106 mg/dL Calcium Level 9.0 8.7-10.4 mg/dL Total Bilirubin 0.4 0.2-1.0 mg/dL Aspartate Amino Transferase (AST) 17 13-40 U/L Alanine Aminotransferase (ALT) 19 7-40 U/L Alkaline Phosphatase 94 46-116 U/L Troponin I High Sensitivity 18 </=34 ng/L B-Type Natriuretic Peptide 833.82 0-100 pg/mL Total Protein 6.1 5.7-8.2 g/dL Albumin 3.8 3.2-4.8 g/dL Microbiology Date/Time Source Procedure Growth Status 06/11/24 22:01 Nose MRSA Screen - Final Complete Assessment 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 I discussed my plan of care with the patient and primary nurse at the bedside I would like to thank Dr. Tobar for the consult, will follow up Plan discussed with: Patient TRICIA HARE MD Jun 12, 2024 16:37
[2024-06-12 17:52] LABS: Magnesium 2.1 mg/dL (1.6-2.6)
[2024-06-12 18:02] LABS: Phosphorus 3.6 mg/dL (2.4-5.1)
[2024-06-12] MEDS ORDERED: TIOTCAP IN (19:59)
[2024-06-12] MEDS ORDERED: ALBU2TAB11 PO (19:59)
[2024-06-12] MEDS ORDERED: ASPI325T6 PO (19:59)
[2024-06-12] MEDS ORDERED: LEVO500T91 PO (19:59)
[2024-06-12] MEDS ORDERED: LEVO125T7 PO (19:59)
--- NOTE | 2024-06-12 20:22 | DVHINCON2 ---
Date of service: Jun 12, 2024 Referring Physician Amadou Reason for Consultation Elevated BNP History of Present Illness This is a 84 year old female with a PMH of COPD who was transferred from [facility] due to concerns of failed pneumonia treatment. Patient was recently admitted and seen at [facility] and was discharged 2 days prior. Patient notes that she began having body aches, abdominal pain and worsening shortness of breath. Patient returned to the ER for reevaluation. Patient was ultimately transferred to [facility] for pulmonary consultation. The patient is currently complaining of weakness, body aches and productive cough. Patient was reportedly started on sepsis protocol at [facility]. Patient was treated again with vancomycin and cefepime here at [facility]. Chest x-ray shows bibasilar consolidations likely pneumonia or aspiration and bilateral pleural effusions. Patient reportedly had a CT abdomen done at [facility] which did not reveal any acute abnormalities. Viral swabs here are negative. BNP 833. Patient was admitted to the hospital. I am asked to consult on this patient. Family History: Patient reports no known family medical history. Allergies: Coded Allergies: Penicillins (Verified Allergy, Severe, 06/11/24) Sulfa Antibiotics (Verified Allergy, Severe, 06/11/24) Home Meds Reported Medications Tiotropium [place] Monohydrate (Spiriva Handihaler) 18 Mcg Cap, 2.5 MCG IN, CAP 06/12/24 Levothyroxine Sodium (Levothyroxine Sodium) 125 Mcg Tab, 125 MCG PO QAM for 30 Days, MCG 06/12/24 Albuterol Sulfate (Albuterol Sulfate) 2 Mg Tab, 0.25 PO Q6HP, MG 06/12/24 Aspirin (Aspirin) 325 Mg Tab, 81 MG PO DAILY for 30 Days, MG 06/12/24 Levofloxacin Hemihydrate (LEVOFLOXACIN) 500 Mg Tab, 500 MG PO DAILY, MG 06/12/24 Current Medications Current Medications Medications (Trade) Dose Ordered Sig/Noe Route PRN Reason Start Time Stop Time Status Last Admin Enoxaparin Sodium (Lovenox) 30 mg DAILY SC 06/12/24 10:00 06/12/24 10:34 Levofloxacin/ Dextrose 150 ml @ 100 mls/hr DAILY IV 06/12/24 10:00 06/11/24 18:53 DC Azithromycin 250 ml @ 125 mls/hr DAILY IV 06/12/24 10:00 06/12/24 10:40 Review of Systems Constitutional: denies: chills, diaphoresis, fatigue, fever, malaise, sweats, weakness, others EENTM: denies: blurred vision, double vision, ear bleeding, ear discharge, ear drainage, ear pain, ear ringing, eye pain, eye redness, hearing loss, mouth pain, mouth swelling, nasal discharge, nose bleeding, nose congestion, nose pain, photophobia, tearing, throat pain, throat swelling, voice changes, others Respiratory: reports: cough, shortness of breath; denies: hemoptysis, orthopnea, SOB at rest, SOB with excertion, stridor, wheezing, others Cardiovascular: denies: chest pain, dizzy spells, diaphoresis, Dyspnea on exertion, edema, irregular heart beat, left arm pain, lightheadedness, palpitations, PND, syncope, others Gastrointestinal: denies: abdomen distended, abdominal pain, blood streaked bowels, constipated, diarrhea, dysphagia, difficulty swallowing, hematemesis, melena, nausea, poor appetite, poor fluid intake, rectal bleeding, rectal pain, vomiting, others Genitourinary: denies: abnormal vagina bleeding, burning, dyspareunia, dysuria, flank pain, frequency, hematuria, incontinence, pain, , vagina discharge, urgency, others Neurological: denies: dizziness, fainting, headache, left sided numbness, left sided weakness, numbness, paresthesia, pre-existing deficit, right sided numbness, right sided weakness, seizure, speech problems, tingling, tremors, weakness, others Musculoskeletal: denies: back pain, gout, joint pain, joint swelling, muscle pain, muscle stiffness, neck pain, others Integumetry: denies: bruises, change in color, change in hair/nails, dryness, laceration, lesions, lumps, rash, wounds, others Allergic/Immunocompromised: denies: Difficulty Healing, Frequent Infections, Hives, Itching, others Hematologic/Lymphatic: denies: anemia, blood clots, easy bleeding, easy bruising, swollen glands, others Endocrine: denies: excessive hunger, excessive sweating, excessive thirst, excessive urination, flushing, intolerance to cold, intolerance to heat, unexplained weight gain, unexplained weight loss, others Psychiatric: denies: anxiety, bipolar disorder, depression, hopeless, panic disorder, schizophrenia, sleepless, suicidal, others All Other Systems: Reviewed and Negative Vital Signs Vital Signs Date Time Temp Pulse Resp B/P (MAP) Pulse Ox O2 Delivery O2 Flow Rate FiO2 06/12/24 18:07 75 16 100 06/12/24 17:57 Nasal Cannula* 3 32 06/12/24 17:36 135/78 06/12/24 17:00 97.6 97.6 Physical Exam GENERAL: Awake, alert, oriented. Frail appearing. LUNGS: Coarse breath sounds. CARDIOVASCULAR: Heart sounds are good. ABDOMEN: Soft. Labs/Diagnostic Data Labs Test 06/12/24 06:49 06/11/24 20:50 06/11/24 17:42 06/11/24 11:30 Range/Units White Blood Count 4.4 4.4-10.8 10^3/uL Red Blood Count 4.43 4.0-5.20 10^6/uL Hemoglobin 12.5 12.2-16.2 g/dL Hematocrit 38.5 36.0-46.0 % Mean Corpuscular Volume 86.9 80.0-100.0 fL Mean Corpuscular Hemoglobin 28.2 28.0-32.0 pg Mean Corpuscular Hemoglobin Concent 32.5 32.0-36.0 g/dL Red Cell Distribution Width 18.6 H 11.8-14.3 % Platelet Count 318 140-450 10^3/uL Mean Platelet Volume 6.1 L 6.9-10.8 fL Neutrophils (%) (Auto) 37.0-80.0 % Lymphocytes (%) (Auto) 10.0-50.0 % Monocytes (%) (Auto) 0.0-12.0 % Basophils (%) (Auto) 0.0-2.0 % Neutrophils # (Auto) 1.6-8.6 10 ^3/uL Lymphocytes # (Auto) 0.4-5.4 10 ^3/uL Monocytes # (Auto) 0-1.3 10 ^3/uL Differential Total Cells Counted 100.0 100 Neutrophils % (Manual) 75 37.0-80.0 Band Neutrophils % (Manual) 4 Lymphocytes % (Manual) 11 10.0-50.0 Monocytes % (Manual) 10 0-12 Eosinophils % (Manual) 0 0-7 Basophils % (Manual) 0 0.0-2.0 Metamyelocytes % (manual) 0 Myelocytes % (Manual) 0 Promyelocytes % (Manual) 0 Blast Cells % (Manual) 0 Reactive Lymphocytes 0 Platelet Estimate Adequate Anisocytosis (manual) Slight Sodium Level 138 136-145 mmol/L Potassium Level 3.6 3.5-5.1 mmol/L Chloride Level 101 98-107 mmol/L Carbon Dioxide Level 27 20-31 mmol/L Anion Gap 10 5-15 Blood Urea Nitrogen 18 9-23 mg/dL Creatinine 1.41 #H 0.550-1.02 mg/dL Glomerular Filtration Rate Calc 37 >90 mL/min BUN/Creatinine Ratio 12.8 10.0-20.0 Serum Glucose 81 74-106 mg/dL Calcium Level 9.7 8.7-10.4 mg/dL Phosphorus Level 3.6 2.4-5.1 mg/dL Magnesium Level 2.1 1.6-2.6 mg/dL Total Bilirubin 0.4 0.2-1.0 mg/dL Aspartate Amino Transferase (AST) 15 13-40 U/L Alanine Aminotransferase (ALT) 21 7-40 U/L Alkaline Phosphatase 102 46-116 U/L Total Protein 7.0 5.7-8.2 g/dL Albumin 4.3 3.2-4.8 g/dL Vitamin D 25-Hydroxy 48.0 30.0-100 ng/mL Parathyroid Hormone (Intact) 262.4 H 18.4-80.1 pg/mL Urine Color Colorless Yellow Urine Clarity Clear Clear Urine pH 7.0 5.0-9.0 Urine Specific [place] 1.014 1.001-1.035 Urine Protein Negative Negative Urine Ketones Negative Negative Urine Blood Negative Negative /uL Urine Nitrite Negative Negative Urine Bilirubin Negative Negative Urine Urobilinogen Normal Negative mg/dL Urine Leukocyte Esterase Negative Negative /uL Urine RBC 2 0 - 4 /hpf Urine Microscopic WBC 5 0-5 /HPF Urine Squamous Epithelial Cells None seen <5 /hpf Urine Bacteria None seen None Seen /hpf Urine Glucose Normal Normal mg/dL Influenza Type A Antigen Negative Negative Influenza Type B Antigen Negative Negative SARS-CoV-2 Antigen (Rapid) Negative NEGATIVE Lactic Acid Level 0.6 0.4-2.0 mmol/L Test 06/11/24 09:00 Range/Units Troponin I High Sensitivity 18 </=34 ng/L B-Type Natriuretic Peptide 833.82 0-100 pg/mL Microbiology Date/Time Source Procedure Growth Status 06/11/24 22:01 Nose MRSA Screen - Final Complete 06/11/24 11:38 Blood Blood Culture - Preliminary NO GROWTH AFTER 24 HOURS OF INCUBATION. Resulted Assessment Multifocal pneumonia. History of COPD. Elevated BNP. Plan/Recommendation I agree with your ongoing assessment and care of plan. Telemetry reviewed. Echocardiogram. Morphine and [place] for pain management. IV antibiotics as ordered. DVT prophylactics. Additional plan as per the hospital course. A total of 45 minutes was spent reviewing the patient record, examining the patient, making a diagnostic and therapeutic plan, discussing this plan with medical personnel, following up on diagnostic studies and following the patient for clinical stability excluding any and all procedures. At least 50% of this time was spent in direct, [id number] contact. Plan discussed with: Patient LEXIE TAVARES MD Jun 12, 2024 20:22
[2024-06-13] VITALS (17 sets, daily range): BP systolic 127–150; BP diastolic 75–86; PULSE 62–83; RESP 16–20; TEMP 97.3–97.8; O2SAT 92–100
--- NOTE | 2024-06-13 08:59 | DVHPN2 ---
Progress Note Date Seen: Jun 13, 2024 Has the PT tested + for MRSA If YES, has PT been informed?: Yes Medical Necessity Reason Pt with a Central, PICC or Fol: No Subjective Review of Systems: RESPIRATORY:Abnormal Objective vital signs Vital Sign Date Time Temp Pulse Resp B/P (MAP) Pulse Ox O2 Delivery O2 Flow Rate FiO2 06/13/24 06:25 74 20 100 06/13/24 06:15 Nasal Cannula 3.0 06/13/24 06:15 32 06/13/24 05:00 97.8 135/83 (100) 97.8 Total Intake and Output 06/12/24 06/12/24 06/13/24 15:00 23:00 07:00 Intake Total 250 ml 400 ml 240 ml Output Total 275 ml 125 ml Balance 250 ml 125 ml 115 ml medications Current Medications Medications Dose Ordered Sig/Noe Route Start Time Stop Time Status Last Admin Dose Admin Acetaminophen 325 mg Q4HP PRN PO 06/11/24 15:15 Acetaminophen/ Hydrocodone Bitart 1 tab Q4HP PRN PO 06/11/24 15:15 06/11/24 22:09 1 TAB Enoxaparin Sodium 30 mg DAILY SC 06/12/24 10:00 06/12/24 10:34 30 MG Morphine Sulfate 2 mg Q4HPRN PRN IV 06/11/24 15:15 06/12/24 01:34 2 MG Nitroglycerin 0.4 mg Q5MINP PRN SL 06/11/24 15:15 Morphine Sulfate 2 mg Q30M PRN IV 06/11/24 15:15 06/12/24 17:06 2 MG Methylprednisolone Sodium Succinate 80 mg DAILY IV 06/11/24 15:15 06/12/24 10:34 80 MG Guaifenesin/ Codeine Phosphate 5 ml Q8HP PO 06/11/24 15:30 06/13/24 05:36 5 ML Albuterol 5 mg Q6HR NEB 06/11/24 18:00 06/13/24 06:15 5 MG Ipratropium [place] 0.5 mg Q6HR NEB 06/11/24 18:00 06/13/24 06:14 0.5 MG Levofloxacin 750 mg Q48H PO 06/11/24 20:00 06/11/24 20:52 750 MG Azithromycin 250 ml @ 125 mls/hr DAILY IV 06/12/24 10:00 06/12/24 10:40 125 MLS/HR Examination rales rt base and lower lobes Examination: LUNGS:Abnormal laboratory and microbiology Laboratory Tests 06/12/24 06:49 Test 06/12/24 06:49 Range/Units Serum Glucose 81 74-106 mg/dL Microbiology Date/Time Source Procedure Growth Status 06/11/24 22:01 Nose MRSA Screen - Final Complete 06/11/24 11:38 Blood Blood Culture - Preliminary NO GROWTH AFTER 24 HOURS OF INCUBATION. Resulted Labs and/or images reviewed: Labs reviewed by me, Image(s) reviewed by me Problem List/Assessment/Plan Problem List/Assessment/Plan 1 resp failure with hypoxia 2 rt lower lobe pneumonia 3 bilateral bronchiectasis 4 bilateral hydronrphrosis plan continue antibiotics and pulmonary toilet pt claims she has plenty of help at home . do p t eval Plan discussed with: Patient Dietary Evaluation Review Recommendations by RD: Dietary education by RD Sepsis reassessment post fluid Respiratory Effort: Non-Labored Heart Sounds: S1 & S2 Breath sounds: Rales, Diminished Skin Moisture: Moist Date of Service: Jun 13, 2024 Billing Provider: MEME TRACEY MD Common Visit Codes: 69470-XMD/OBS DISCH DAY >30min MEME TRACEY MD Jun 13, 2024 08:59
[2024-06-13 11:13] LABS: Basophils # (auto) 0 10 ^3/uL (0-0.2); Basophils % (auto) 0.5 % (0.0-2.0); Eosinophils # (auto) 0 10 ^3/uL (0-0.8); Eosinophils % (auto) 0.5 % (0.0-7.0); Hematocrit 38.8 % (36.0-46.0); Hemoglobin 12.6 g/dL (12.2-16.2); Lymphocytes # (auto) 0.5 10 ^3/uL (0.4-5.4); Lymphocytes % (auto) 9.4 % (10.0-50.0); Mean Corpuscular Hgb Conc. 32.4 g/dL (32.0-36.0); Mean Corpuscular Volume 86.3 fL (80.0-100.0); Monocytes # (auto) 0.4 10 ^3/uL (0-1.3); Monocytes % (auto) 6.8 % (0.0-12.0); Neutrophils # (auto) 4.5 10 ^3/uL (1.6-8.6); Neutrophils % (auto) 82.8 % (37.0-80.0); Nucleated Red Blood Cells % 0.1 %; Platelet Count (auto) 298 10^3/uL (140-450); Red Cell Distribution Width 18.4 % (11.8-14.3); White Blood Cell 5.4 10^3/uL (4.4-10.8)
[2024-06-13 11:58] LABS: Alanine Aminotransferase 18 U/L (7-40); Anion Gap 13 (5-15); Calcium 9.7 mg/dL (8.7-10.4); Carbon Dioxide 25 mmol/L (20-31); Chloride 101 mmol/L (98-107); Sodium 139 mmol/L (136-145)
[2024-06-13 12:00] LABS: BUN/Creatinine Ratio 15.8 (10.0-20.0); Blood Urea Nitrogen 18 mg/dL (9-23)
[2024-06-13 12:02] LABS: Bilirubin, Total 0.3 mg/dL (0.2-1.0); Total Protein 6.2 g/dL (5.7-8.2)
[2024-06-13 12:13] LABS: Aspartate Aminotransferase 14 U/L (13-40)
[2024-06-13 12:31] LABS: Alkaline Phosphatase 99 U/L (46-116)
[2024-06-13 12:32] LABS: Glucose 148 mg/dL (74-106); Potassium 2.6 mmol/L (3.5-5.1)
--- NOTE | 2024-06-13 13:43 | DVHPN2 ---
Progress Note Date Seen: Jun 13, 2024 Has the PT tested + for MRSA If YES, has PT been informed?: Yes Medical Necessity Reason Pt with a Central, PICC or Fol: No Subjective Patient reports: No new complaints Other Systems: Patient seen and examined by myself today in follow-up Objective vital signs Vital Sign Date Time Temp Pulse Resp B/P (MAP) Pulse Ox O2 Delivery O2 Flow Rate FiO2 06/13/24 13:00 97.5 62 20 127/81 (96) 92 97.5 06/13/24 10:00 Nasal Cannula* 3 32 Total Intake and Output 06/12/24 06/12/24 06/13/24 15:00 23:00 07:00 Intake Total 250 ml 400 ml 240 ml Output Total 275 ml 125 ml Balance 250 ml 125 ml 115 ml medications Current Medications Medications Dose Ordered Sig/Noe Route Start Time Stop Time Status Last Admin Dose Admin Acetaminophen 325 mg Q4HP PRN PO 06/11/24 15:15 Acetaminophen/ Hydrocodone Bitart 1 tab Q4HP PRN PO 06/11/24 15:15 06/11/24 22:09 1 TAB Enoxaparin Sodium 30 mg DAILY SC 06/12/24 10:00 06/13/24 10:05 30 MG Morphine Sulfate 2 mg Q4HPRN PRN IV 06/11/24 15:15 06/12/24 01:34 2 MG Nitroglycerin 0.4 mg Q5MINP PRN SL 06/11/24 15:15 Morphine Sulfate 2 mg Q30M PRN IV 06/11/24 15:15 06/12/24 17:06 2 MG Methylprednisolone Sodium Succinate 80 mg DAILY IV 06/11/24 15:15 06/13/24 10:04 80 MG Guaifenesin/ Codeine Phosphate 5 ml Q8HP PO 06/11/24 15:30 06/13/24 05:36 5 ML Albuterol 5 mg Q6HR NEB 06/11/24 18:00 06/13/24 11:35 5 MG Ipratropium [place] 0.5 mg Q6HR NEB 06/11/24 18:00 06/13/24 11:35 0.5 MG Levofloxacin 750 mg Q48H PO 06/11/24 20:00 06/11/24 20:52 750 MG Azithromycin 250 ml @ 125 mls/hr DAILY IV 06/12/24 10:00 06/13/24 10:05 125 MLS/HR Examination: LUNGS:Normal, CVS:Normal, MSK:Normal laboratory and microbiology Laboratory Tests 06/13/24 10:17 Test 06/13/24 10:17 Range/Units Serum Glucose 148 H 74-106 mg/dL Microbiology Date/Time Source Procedure Growth Status 06/11/24 22:01 Nose MRSA Screen - Final Complete 06/11/24 11:38 Blood Blood Culture - Preliminary NO GROWTH AFTER 48 HOURS OF INCUBATION. 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 obstruction Bilateral hydronephrosis Multifocal pneumonia CHF exacerbation Hypokalemia Anemia of CKD REC: Kidney function is improving Dietz catheter Strict I&Os Check urinary electrolytes Kidney ultrasound reported bilateral hydronephrosis IV antibiotics KCl replacement Pulmonary consult Cardiology consult Urology consult We will continue to follow Plan discussed with: Patient My Orders My Orders Orders - TRICIA HARE MD Procedure Category Date Status Time Urine Sodium LAB 06/12/24 Logged 16:30 Urine LAB 06/12/24 Logged Protein/Creatinine Urine Creatinine LAB 06/12/24 Logged 16:30 Urinalysis LAB 06/12/24 Logged 16:30 Dietary Evaluation Review Recommendations by RD: Dietary education by DRAGAN Sepsis reassessment post fluid Respiratory Effort: Non-Labored Heart Sounds: S1 & S2 Breath sounds: Rales, Diminished Skin Moisture: Moist TRICIA HARE MD Jun 13, 2024 13:43
--- NOTE | 2024-06-13 15:01 | DVHPN2 ---
Progress Note - Dictate Date Seen: Jun 13, 2024 Has the PT tested + for MRSA If YES, has PT been informed?: Yes Medical Necessity Reason Pt with a Central, PICC or Fol: No The following are medically ne: Huang Catheter Subjective Patient notes improvement in symptoms. vital signs Vital Sign Date Time Temp Pulse Resp B/P (MAP) Pulse Ox O2 Delivery O2 Flow Rate FiO2 06/13/24 13:00 97.5 62 20 127/81 (96) 92 97.5 06/13/24 10:00 Nasal Cannula* 3 32 Total Intake and Output 06/12/24 06/12/24 06/13/24 15:00 23:00 07:00 Intake Total 250 ml 400 ml 240 ml Output Total 275 ml 125 ml Balance 250 ml 125 ml 115 ml medications Current Medications Medications Dose Ordered Sig/Noe Route Start Time Stop Time Status Last Admin Dose Admin Acetaminophen 325 mg Q4HP PRN PO 06/11/24 15:15 Acetaminophen/ Hydrocodone Bitart 1 tab Q4HP PRN PO 06/11/24 15:15 06/11/24 22:09 1 TAB Enoxaparin Sodium 30 mg DAILY SC 06/12/24 10:00 06/13/24 10:05 30 MG Morphine Sulfate 2 mg Q4HPRN PRN IV 06/11/24 15:15 06/12/24 01:34 2 MG Nitroglycerin 0.4 mg Q5MINP PRN SL 06/11/24 15:15 Morphine Sulfate 2 mg Q30M PRN IV 06/11/24 15:15 06/12/24 17:06 2 MG Methylprednisolone Sodium Succinate 80 mg DAILY IV 06/11/24 15:15 06/13/24 10:04 80 MG Guaifenesin/ Codeine Phosphate 5 ml Q8HP PO 06/11/24 15:30 06/13/24 14:14 5 ML Albuterol 5 mg Q6HR NEB 06/11/24 18:00 06/13/24 11:35 5 MG Ipratropium [place] 0.5 mg Q6HR NEB 06/11/24 18:00 06/13/24 11:35 0.5 MG Levofloxacin 750 mg Q48H PO 06/11/24 20:00 06/11/24 20:52 750 MG Azithromycin 250 ml @ 125 mls/hr DAILY IV 06/12/24 10:00 06/13/24 10:05 125 MLS/HR Potassium Chloride 100 ml @ 50 mls/hr Q2H IV 06/13/24 13:45 06/13/24 19:44 objective General appearance: Frail appearing Respiratory: Coarse breath sounds Cardiovascular: Regular rate and rhythm, no murmurs. No edema Abdomen: Soft, nondistended, nontender, bowel sounds present MSK: Normal range of motion. Neuro: Alert Psych: Appropriate mood and affect. laboratory and microbiology Laboratory Tests 06/13/24 10:17 Test 06/13/24 10:17 Range/Units Serum Glucose 148 H 74-106 mg/dL Assessment/Plan Primary Diagnosis 1. Multifocal Pneumonia 2' Diagnosis/Co-morbidities 2. History of COPD 3. Concern for Underlying CHF Plan -Admit to telemetry -Pulmonary consulted, Dr. Martin -CT chest consistent with pneumonia, pleural effusion -Cardiology consulted, Dr. Madrid. TTE ordered -Levaquin 750mg IV qdaily. Azithromycin 500mg IV daily for 3 days added for anti-inflammation -Duonebs, solumedrol as scheduled -Strict I/O -Procacitonin ordered -Nephrology consulted for KASSIE, likely due to diuresis with lasix 40mg x1 complicated by hydronephrosis -Urology consulted for bilateral hydronephrosis. Huang placed. Repeat US to check resolution of hydronephrosis. If persists, will need renal scan. Regardless, plan to DC with huang. -Influenza/COVID ordered, negative -Pain medications listed per MAR -Full Code Dietary Evaluation Review Recommendations by RD: Dietary education by RD Plan discussed with: Patient Respiratory Effort: Non-Labored Heart Sounds: S1 & S2 Breath sounds: Rales, Diminished Skin Moisture: Moist HUAN HERNANDEZ DO Jun 13, 2024 15:01
--- NOTE | 2024-06-13 15:04 | DVHPN2 ---
Progress Note - Dictate Date Seen: Jun 13, 2024 Has the PT tested + for MRSA If YES, has PT been informed?: Yes Medical Necessity Reason Pt with a Central, PICC or Fol: No The following are medically ne: Dietz Catheter Subjective Patient was seen and evaluated in follow up. Patient is complaining of abdominal pain and SOB. Patient is on 3 LPM NC. K 2.6, potassium was replaced. PTH intact 262.4. Echocardiogram is pending. Cultures are pending. Telemetry reviewed. vital signs Vital Sign Date Time Temp Pulse Resp B/P (MAP) Pulse Ox O2 Delivery O2 Flow Rate FiO2 06/13/24 13:00 97.5 62 20 127/81 (96) 92 97.5 06/13/24 10:00 Nasal Cannula* 3 32 Total Intake and Output 06/12/24 06/12/24 06/13/24 15:00 23:00 07:00 Intake Total 250 ml 400 ml 240 ml Output Total 275 ml 125 ml Balance 250 ml 125 ml 115 ml medications Current Medications Medications Dose Ordered Sig/Noe Route Start Time Stop Time Status Last Admin Dose Admin Acetaminophen 325 mg Q4HP PRN PO 06/11/24 15:15 Acetaminophen/ Hydrocodone Bitart 1 tab Q4HP PRN PO 06/11/24 15:15 06/11/24 22:09 1 TAB Enoxaparin Sodium 30 mg DAILY SC 06/12/24 10:00 06/13/24 10:05 30 MG Morphine Sulfate 2 mg Q4HPRN PRN IV 06/11/24 15:15 06/12/24 01:34 2 MG Nitroglycerin 0.4 mg Q5MINP PRN SL 06/11/24 15:15 Morphine Sulfate 2 mg Q30M PRN IV 06/11/24 15:15 06/12/24 17:06 2 MG Methylprednisolone Sodium Succinate 80 mg DAILY IV 06/11/24 15:15 06/13/24 10:04 80 MG Guaifenesin/ Codeine Phosphate 5 ml Q8HP PO 06/11/24 15:30 06/13/24 14:14 5 ML Albuterol 5 mg Q6HR NEB 06/11/24 18:00 06/13/24 11:35 5 MG Ipratropium [place] 0.5 mg Q6HR NEB 06/11/24 18:00 06/13/24 11:35 0.5 MG Levofloxacin 750 mg Q48H PO 06/11/24 20:00 06/11/24 20:52 750 MG Azithromycin 250 ml @ 125 mls/hr DAILY IV 06/12/24 10:00 06/13/24 10:05 125 MLS/HR Potassium Chloride 100 ml @ 50 mls/hr Q2H IV 06/13/24 13:45 06/13/24 19:44 objective GENERAL: Awake, alert, oriented. Frail appearing. LUNGS: Coarse breath sounds. CARDIOVASCULAR: Heart sounds are good. ABDOMEN: Soft. laboratory and microbiology Laboratory Tests 06/13/24 10:17 Test 06/13/24 10:17 Range/Units Serum Glucose 148 H 74-106 mg/dL Problem List Multifocal pneumonia. History of COPD. Elevated BNP. Assessment/Plan Continued all current supportive medical care. Echocardiogram. Morphine and [place] for pain management. IV antibiotics as ordered. DVT prophylactics. Additional plan as per the hospital course. Dietary Evaluation Review Recommendations by RD: Dietary education by RD Plan discussed with: Patient Respiratory Effort: Non-Labored Heart Sounds: S1 & S2 Breath sounds: Rales, Diminished Skin Moisture: Moist LEXIE TAVARES MD Jun 13, 2024 15:04
--- NOTE | 2024-06-13 15:55 | DVH ---
EXAM: US KIDNEY INDICATION: Follwo up on resolution of hydronephrosis TECHNIQUE: Multiple real-time sonographic images of the kidneys and bladder were obtained. COMPARISON: 06/12/2024 Findings: Right kidney measures 8.6 cm with normal contours, increased echotexture, and normal cortical thickne ss. No evidence of hydronephrosis, calculi, cystic or solid lesions. Left kidney measures 9.2 cm with normal contours, increased echotexture, and normal cortical thicknes s. Marked hydronephrosis. No evidence of calculi, cystic or solid lesions. Status post cystectomy. 13.7 x 14.2 x 12.9 cm fluid filled structure in the pelvis. Impression: 1. Increased echogenicity of bilateral kidneys. Correlate for medical renal disease. 2. Marked left hydronephrosis. No right hydronephrosis. 3. 13.7 x 14.2 x 12.9 cm fluid filled structure in the pelvis may reflect the urinary pouch. Correlat e with history.
[2024-06-13] MEDS: POTASSIUM CHL 20MEQ/100ML 100 ML IV SCH (16:24)
[2024-06-13 16:43] LABS: Urine Bacteria FEW /hpf (None Seen); Urine Blood Negative /uL (Negative); Urine Clarity Clear (Clear); Urine Hyaline Cast FEW /lpf (0 - 2); Urine Mucus FEW (None Seen); Urine Protein, UAD TRACE (Negative); Urine Squamous Epithelial Cell None Seen /hpf (<5); Urine Urobilinogen Normal (Negative); Urine WBC 21 /HPF (0-5); Urine WBC Clumps PRESENT /hpf (None Seen)
[2024-06-13 16:47] LABS: Urine Color STRAW (Yellow)
--- NOTE | 2024-06-13 16:52 | DVHINCON2 ---
Date of service: Jun 13, 2024 Referring Physician Hospitalist Reason for Consultation Left hydronephrosis on ultrasound History of Present Illness Patient admitted for respiratory issue noted to have hydronephrosis of left kidney on ultrasound. Interestingly she allegedly underwent a CT scan at another facility that did not show any renal abnormality. Moderate bilateral hydronephrosis was reported on CT Scan chest 06/12/24. She reports chronic LBP, R.greater than L. Patient is known to have history of bladder cancer and has undergone radical cy stectomy with Agnes pouch (continent urinary diversion) at [facility] many years ago. 84-year-old female with past medical history of COPD who was transferred from [facility] due to concerns of failed pneumonia treatment. Patient was recently admitted and seen at [facility] and was discharged 2 days prior. Patient notes that she began having bodyaches, abdominal pain and worsening shortness of breath. Patient returned to the ER for reevaluation. Patient was ultimately transferred to [facility] for pulmonary consultation. At bedside, patient complains of weakness, body ac hes and productive cough. Patient was reportedly started on sepsis protocol at [facility]. Patient was treated again with vancomycin and cefepime here at [facility]. At the time of my evaluation, patient did not have signs of severe sepsis. Chest x-ray showed bibasilar consolidations likely pneumonia or aspiration. There is also small bilateral pleural effusions. Patient reportedly had a CT abdomen done at [facility] which did not reveal any acute abnormalities. Patient was admitted for further treatment of multifocal pneumonia and pulmonary consultation. Past Medical History History of bladder cancer COPD Past Surgical History Radical cystectomy with urinary diversion Family History: Patient reports no known family medical history. Allergies: Coded Allergies: Penicillins (Verified Allergy, Severe, 06/11/24) Sulfa Antibiotics (Verified Allergy, Severe, 06/11/24) Home Meds Reported Medications Tiotropium [place] Monohydrate (Spiriva Handihaler) 18 Mcg Cap, 2.5 MCG IN, CAP 06/12/24 Levothyroxine Sodium (Levothyroxine Sodium) 125 Mcg Tab, 125 MCG PO QAM for 30 Days, MCG 06/12/24 Albuterol Sulfate (Albuterol Sulfate) 2 Mg Tab, 0.25 PO Q6HP, MG 06/12/24 Aspirin (Aspirin) 325 Mg Tab, 81 MG PO DAILY for 30 Days, MG 06/12/24 Levofloxacin Hemihydrate (LEVOFLOXACIN) 500 Mg Tab, 500 MG PO DAILY, MG 06/12/24 Current Medications Current Medications Medications (Trade) Dose Ordered Sig/Noe Route PRN Reason Start Time Stop Time Status Last Admin Potassium Chloride 100 ml @ 50 mls/hr Q2H IV 06/13/24 13:45 06/13/24 19:44 06/13/24 16:24 Review of Systems Constitutional: denies: chills, diaphoresis, fatigue, fever, malaise, sweats, weakness, others EENTM: denies: blurred vision, double vision, ear bleeding, ear discharge, ear drainage, ear pain, ear ringing, eye pain, eye redness, hearing loss, mouth pain, mouth swelling, nasal discharge, nose bleeding, nose congestion, nose pain, photophobia, tearing, throat pain, throat swelling, voice changes, others Respiratory: reports: cough, shortness of breath; denies: hemoptysis, orthopnea, SOB at rest, SOB with excertion, stridor, wheezing, others Cardiovascular: denies: chest pain, dizzy spells, diaphoresis, Dyspnea on exertion, edema, irregular heart beat, left arm pain, lightheadedness, palpitations, PND, syncope, others Gastrointestinal: denies: abdomen distended, abdominal pain, blood streaked bowels, constipated, diarrhea, dysphagia, difficulty swallowing, hematemesis, melena, nausea, poor appetite, poor fluid intake, rectal bleeding, rectal pain, vomiting, others Genitourinary: denies: abnormal vagina bleeding, burning, dyspareunia, dysuria, flank pain, frequency, hematuria, incontinence, pain, , vagina discharge, urgency, others Neurological: denies: dizziness, fainting, headache, left sided numbness, left sided weakness, numbness, paresthesia, pre-existing deficit, right sided numbness, right sided weakness, seizure, speech problems, tingling, tremors, w eakness, others Musculoskeletal: denies: back pain, gout, joint pain, joint swelling, muscle pain, muscle stiffness, neck pain, others Integumetry: denies: bruises, change in color, change in hair/nails, dryness, laceration, lesions, lumps, rash, wounds, others Allergic/Immunocompromised: denies: Difficulty Healing, Frequent Infections, Hives, Itching, others Hematologic/Lymphatic: denies: anemia, blood clots, easy bleeding, easy bruising, swollen glands, others Endocrine: denies: excessive hunger, excessive sweating, excessive thirst, excessive urination, flushing, intolerance to cold, intolerance to heat, unexplained weight gain, unexplained weight loss, others Psychiatric: denies: anxiety, bipolar disorder, depression, hopeless, panic disorder, schizophrenia, sleepless, suicidal, others All Other Systems: Reviewed and Negative Vital Signs Vital Signs Date Time Temp Pulse Resp B/P (MAP) Pulse Ox O2 Delivery O2 Flow Rate FiO2 06/13/24 13:00 97.5 62 20 127/81 (96) 92 97.5 06/13/24 10:00 Nasal Cannula* 3 32 Physical Exam General Appearance: No Apparent Distress, Normal HEENT: Normal ENT Inspection, Pharynx Normal, TMs Normal Neck: Full Range of Motion, Non-Tender, Normal, Normal Inspection Respiratory: Chest Non-Tender, Lungs Clear, No Accessory Muscle Use, No Respiratory Distress, Normal Breath Sounds Cardiovascular: No Edema, No JVD, No Murmur, No Gallop, Normal Peripheral Pulses, Regular Rate/Rhythm Breast Exam: Deferred Gastrointestinal: No Organomegaly, Non Tender, No Pulsatile Mass, Normal Bowel Sounds, Soft Genitalia: Deferred Pelvic: Deferred Rectal: Deferred Extremities: No calf tenderness, Normal capillary refill, Normal inspection, Normal range of motion, Non-tender, No pedal edema Musculoskeletal : Apperance: Normal Neurologic: Alert, tube room cashier II-XII nml as Tested, No Motor Deficits, Normal Affect, Normal Mood, No Sensory Deficits Cerebellar Function: Normal Reflexes: Normal Skin: Dry, Normal Color, Warm Lymphatic: No Adenopathy Labs/Diagnostic Data Labs Test 06/13/24 16:00 06/13/24 10:17 06/12/24 23:06 06/12/24 06:49 Range/Units Urine Color Straw Yellow Urine Clarity Clear Clear Urine pH 7.0 5.0-9.0 Urine Specific [place] 1.010 1.001-1.035 Urine Protein Trace H Negative Urine Ketones Negative Negative Urine Blood Negative Negative /uL Urine Nitrite Negative Negative Urine Bilirubin Negative Negative Urine Urobilinogen Normal Negative mg/dL Urine Leukocyte Esterase 2+ Negative /uL Urine RBC 4 0 - 4 /hpf Urine WBC Clumps Present None Seen /hpf Urine Microscopic WBC 21 H 0-5 /HPF Urine Squamous Epithelial Cells None seen <5 /hpf Urine Bacteria Few H None Seen /hpf Urine Hyaline Casts Few 0 - 2 /lpf Urine Mucus Few None Seen Urine Glucose Normal Normal mg/dL White Blood Count 5.4 4.4-10.8 10^3/uL Red Blood Count 4.50 4.0-5.20 10^6/uL Hemoglobin 12.6 12.2-16.2 g/dL Hematocrit 38.8 36.0-46.0 % Mean Corpuscular Volume 86.3 80.0-100.0 fL Mean Corpuscular Hemoglobin 28.0 28.0-32.0 pg Mean Corpuscular Hemoglobin Concent 32.4 32.0-36.0 g/dL Red Cell Distribution Width 18.4 H 11.8-14.3 % Platelet Count 298 140-450 10^3/uL Mean Platelet Volume 6.0 L 6.9-10.8 fL Neutrophils (%) (Auto) 82.8 H 37.0-80.0 % Lymphocytes (%) (Auto) 9.4 L 10.0-50.0 % Monocytes (%) (Auto) 6.8 0.0-12.0 % Eosinophils (%) (Auto) 0.5 0.0-7.0 % Basophils (%) (Auto) 0.5 0.0-2.0 % Neutrophils # (Auto) 4.5 1.6-8.6 10 ^3/uL Lymphocytes # (Auto) 0.5 0.4-5.4 10 ^3/uL Monocytes # (Auto) 0.4 0-1.3 10 ^3/uL Eosinophils # (Auto) 0 0-0.8 10 ^3/uL Basophils # (Auto) 0 0-0.2 10 ^3/uL Nucleated Red Blood Cells 0.1 % Sodium Level 139 136-145 mmol/L Potassium Level 2.6 L 3.5-5.1 mmol/L Chloride Level 101 98-107 mmol/L Carbon Dioxide Level 25 20-31 mmol/L Anion Gap 13 5-15 Blood Urea Nitrogen 18 9-23 mg/dL Creatinine 1.14 H 0.550-1.02 mg/dL Glomerular Filtration Rate Calc 48 >90 mL/min BUN/Creatinine Ratio 15.8 10.0-20.0 Serum Glucose 148 H 74-106 mg/dL Calcium Level 9.7 8.7-10.4 mg/dL Total Bilirubin 0.3 0.2-1.0 mg/dL Aspartate Amino Transferase (AST) 14 13-40 U/L Alanine Aminotransferase (ALT) 18 7-40 U/L Alkaline Phosphatase 99 46-116 U/L Total Protein 6.2 5.7-8.2 g/dL Albumin 4.0 3.2-4.8 g/dL Troponin I High Sensitivity 12 </=34 ng/L Differential Total Cells Counted 100.0 100 Neutrophils % (Manual) 75 37.0-80.0 Band Neutrophils % (Manual) 4 Lymphocytes % (Manual) 11 10.0-50.0 Monocytes % (Manual) 10 0-12 Eosinophils % (Manual) 0 0-7 Basophils % (Manual) 0 0.0-2.0 Metamyelocytes % (manual) 0 Myelocytes % (Manual) 0 Promyelocytes % (Manual) 0 Blast Cells % (Manual) 0 Reactive Lymphocytes 0 Platelet Estimate Adequate Anisocytosis (manual) Slight Phosphorus Level 3.6 2.4-5.1 mg/dL Magnesium Level 2.1 1.6-2.6 mg/dL Vitamin D 25-Hydroxy 48.0 30.0-100 ng/mL Parathyroid Hormone (Intact) 262.4 H 18.4-80.1 pg/mL Test 06/11/24 17:42 06/11/24 11:30 06/11/24 09:00 Range/Units Influenza Type A Antigen Negative Negative Influenza Type B Antigen Negative Negative SARS-CoV-2 Antigen (Rapid) Negative NEGATIVE Lactic Acid Level 0.6 0.4-2.0 mmol/L B-Type Natriuretic Peptide 833.82 0-100 pg/mL Microbiology Date/Time Source Procedure Growth Status 06/11/24 22:01 Nose MRSA Screen - Final Complete 06/11/24 11:38 Blood Blood Culture - Preliminary NO GROWTH AFTER 48 HOURS OF INCUBATION. Resulted PATIENT: JATIN REYES ACCT: [id number] UNIT: [id number] : 1940 LOC: [facility] / [facility] AGE / SEX: 84 / F ADM STATUS: ADM IN SERVICE [id number] ORDERING PHYSICIAN: HUAN HERNANDEZ DO PROCEDURE(s): KIDUS - KIDNEY REASON: Follwo up on resolution of hydronephrosis ORDER NUMBER(s): [id number], ACCESSION NUMBER(s): [id number] EXAM: US KIDNEY INDICATION: Follwo up on resolution of hydronephrosis TECHNIQUE: Multiple real-time sonographic images of the kidneys and bladder were obtained. COMPARISON: 06/12/2024 Findings: Right kidney measures 8.6 cm with normal contours, increased echotexture, and normal cortical thickness. No evidence of hydronephrosis, calculi, cystic or solid lesions. Left kidney measures 9.2 cm with normal contours, increased echotexture, and normal cortical thickness. Marked hydronephrosis. No evidence of calculi, cystic or solid lesions. Status post cystectomy. 13.7 x 14.2 x 12.9 cm fluid filled structure in the pel vis. Impression: 1. Increased echogenicity of bilateral kidneys. Correlate for medical renal disease. 2. Marked left hydronephrosis. No right hydronephrosis. 3. 13.7 x 14.2 x 12.9 cm fluid filled structure in the pelvis may reflect the urinary pouch. Correlate with history. ATED BY: JESSICA CONTRERAS DO DICTATED DATE/TIME: 06/13/24 155 SIGNED BY: JESSICA CONTRERAS DO SIGNED DATE/TIME: 06/13/24 155 Assessment Left hydronephrosis reported on ultrasound bilateral hydronephrosis noted on CT Scan chest Chronic R>L flank pain Plan/Recommendation I would like to repeat a CT scan abdomen and pelvis noncontrast study since there appears to be discrepancy in the reports Mag 3 Renal Scan with split renal function and Lasix washout to determine obstructive uropathy. Plan discussed with: Patient, Other ДМИТРИЙ TURNER MD Jun 13, 2024 16:52
--- NOTE | 2024-06-13 18:31 | DVH ---
Exam: CT CT AB PEL WO CON-NO ORAL OR IV History: left hydronephrosis Comparison Study: None TECHNIQUE: Multidetector CT of the abdomen and pelvis was performed from lung bases to pubic symphysi s. Imaging was performed without IV contrast. Axial, coronal, and sagittal multiplanar reformats were obtained from the axial data set by the technologist. RADIATION DOSE: DLP 238.0 mGy.cm; CTDI vol 5.07 mGy. Findings: Limited evaluation given noncontrast technique. Lungs: The lung bases are clear. Heart: No cardiomegaly or pericardial effusion. Liver: Unremarkable. Gallbladder: Unremarkable. Spleen: Unremarkable Pancreas: Unremarkable Adrenals: Unremarkable Kidneys: Mild left hydronephrosis. GI tract: Postsurgical changes of the bowel. : Unremarkable. Cystectomy. Vasculature: Moderate to marked aortoiliac atherosclerosis. Lymphadenopathy: Absent Peritoneum: No ascites. 7.0 x 10.3 cm fluid collection in the right lower quadrant. Musculoskeletal: Mild to moderate multilevel degenerative changes of the thoracolumbar spine. Soft tissues: Unremarkable Impression: 1. Limited evaluation given noncontrast technique. 2. No acute abdominopelvic abnormalities. 3. Mild left hydronephrosis. 4. 7.0 x 10.3 cm fluid collection in the right lower quadrant may reflect a urinary pouch. Correlate with prior imaging and/or history.
[2024-06-14] VITALS (16 sets, daily range): BP systolic 120–148; BP diastolic 66–82; PULSE 58–86; RESP 14–18; TEMP 97.5–98.3; O2SAT 92–100
[2024-06-14] MEDS: POTASSIUM CHL 20MEQ/100ML 100 ML IV SCH (00:45)
--- NOTE | 2024-06-14 10:28 | DVH ---
EXAM: XY CHEST XRAY 1 VIEW Indication: Respiratory failure Technique: Single frontal view of the chest was obtained Comparison: XY CHEST PORTABLE on DOS: 06/11/24 FINDINGS: Lines and Tubes: None Lungs: Right upper lung opacity. Pleura: Trace bilateral pleural effusions. No pneumothorax. Cardiomediastinal contours: Unremarkable. Atherosclerotic vascular calcifications of the thoracic ao rta are noted. Bones: No acute osseous abnormality. IMPRESSION: Right upper lung opacity. Trace bilateral pleural effusions.
--- NOTE | 2024-06-14 11:09 | DVH ---
Date: 06/14/2024 10:01 AM Examination: XY KUB ABDOMEN SINGLE VIEW History: Abdominal distention, rule out ileus TECHNIQUE: Frontal views of the abdomen was obtained. FINDINGS: Gaseous distention in the mid abdomen measuring 9.5 cm. The lung bases are unremarkable. No acute osseous abnormality identified. IMPRESSION: Gaseous distention in the mid abdomen measuring 9.5 cm.
--- NOTE | 2024-06-14 11:23 | DVHPN2 ---
Progress Note Date Seen: Jun 14, 2024 Has the PT tested + for MRSA If YES, has PT been informed?: Yes Medical Necessity Reason Pt with a Central, PICC or Fol: No The following are medically ne: Dietz Catheter Subjective Other Systems: Patient seen and examined by myself today in follow-up Objective vital signs Vital Sign Date Time Temp Pulse Resp B/P (MAP) Pulse Ox O2 Delivery O2 Flow Rate FiO2 06/14/24 09:00 97.7 80 15 131/77 (95) 99 97.7 06/14/24 05:48 Nasal Cannula 3.0 06/14/24 05:48 32 Total Intake and Output 06/13/24 06/13/24 06/14/24 15:00 23:00 07:00 Intake Total 250 ml 350 ml 450 ml Output Total 1325 ml 300 ml Balance 250 ml -975 ml 150 ml medications Current Medications Medications Dose Ordered Sig/Noe Route Start Time Stop Time Status Last Admin Dose Admin Acetaminophen 325 mg Q4HP PRN PO 06/11/24 15:15 Acetaminophen/ Hydrocodone Bitart 1 tab Q4HP PRN PO 06/11/24 15:15 06/14/24 09:00 1 TAB Enoxaparin Sodium 30 mg DAILY SC 06/12/24 10:00 06/14/24 10:28 30 MG Morphine Sulfate 2 mg Q4HPRN PRN IV 06/11/24 15:15 06/12/24 01:34 2 MG Nitroglycerin 0.4 mg Q5MINP PRN SL 06/11/24 15:15 Morphine Sulfate 2 mg Q30M PRN IV 06/11/24 15:15 06/12/24 17:06 2 MG Methylprednisolone Sodium Succinate 80 mg DAILY IV 06/11/24 15:15 06/14/24 10:27 80 MG Guaifenesin/ Codeine Phosphate 5 ml Q8HP PO 06/11/24 15:30 06/14/24 05:32 5 ML Albuterol 5 mg Q6HR NEB 06/11/24 18:00 06/14/24 05:48 5 MG Ipratropium [place] 0.5 mg Q6HR NEB 06/11/24 18:00 06/14/24 05:48 0.5 MG Levofloxacin 750 mg Q48H PO 06/11/24 20:00 06/13/24 20:40 750 MG Azithromycin 250 ml @ 125 mls/hr DAILY IV 06/12/24 10:00 06/14/24 10:29 125 MLS/HR Examination: LUNGS:Normal, CVS:Normal, MSK:Normal laboratory and microbiology Test 06/14/24 09:58 Range/Units Serum Glucose Pending Microbiology Date/Time Source Procedure Growth Status 06/11/24 22:01 Nose MRSA Screen - Final Complete 06/11/24 11:38 Blood Blood Culture - Preliminary NO GROWTH AFTER 48 HOURS OF INCUBATION. 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 obstruction Bilateral hydronephrosis Multifocal pneumonia CHF exacerbation Hypokalemia Anemia of CKD REC: Kidney function is improving Increased urine output Dietz catheter Strict I&Os Check urinary electrolytes Kidney ultrasound reported bilateral hydronephrosis IV antibiotics KCl replacement Pulmonary consult Cardiology consult Urology consult We will continue to follow Plan discussed with: Patient Dietary Evaluation Review Recommendations by RD: Dietary education by RD Sepsis reassessment post fluid Respiratory Effort: Non-Labored Heart Sounds: S1 & S2 Breath sounds: Rales, Diminished Skin Moisture: Moist TRICIA HARE MD Jun 14, 2024 11:23
[2024-06-14] MEDS: FUROSEMIDE 40 MG/4 ML VIAL IV ONE (12:10)
[2024-06-14 12:16] LABS: Protein, Urine 38.2 mg/dL (1-14)
[2024-06-14 12:17] LABS: Creatinine, Urine 24.49 mg/dL (30.0-125.0); Urine Protein/Creatinine Ratio 1.56
[2024-06-14 12:20] LABS: Creatinine, Urine 24.54 mg/dL (30.0-125.0)
[2024-06-14 12:37] LABS: Basophils # (auto) 0 10 ^3/uL (0-0.2); Basophils % (auto) 0.2 % (0.0-2.0); Eosinophils # (auto) 0 10 ^3/uL (0-0.8); Eosinophils % (auto) 0.4 % (0.0-7.0); Hematocrit 35.5 % (36.0-46.0); Hemoglobin 11.2 g/dL (12.2-16.2); Lymphocytes # (auto) 0.7 10 ^3/uL (0.4-5.4); Lymphocytes % (auto) 7.8 % (10.0-50.0); Mean Corpuscular Hemoglobin 27.3 pg (28.0-32.0); Mean Corpuscular Hgb Conc. 31.6 g/dL (32.0-36.0); Mean Corpuscular Volume 86.4 fL (80.0-100.0); Monocytes # (auto) 0.7 10 ^3/uL (0-1.3); Monocytes % (auto) 8.1 % (0.0-12.0); Neutrophils # (auto) 7.5 10 ^3/uL (1.6-8.6); Neutrophils % (auto) 83.5 % (37.0-80.0); Platelet Count (auto) 293 10^3/uL (140-450); Red Blood Cells 4.11 10^6/uL (4.0-5.20); Red Cell Distribution Width 18.5 % (11.8-14.3)
[2024-06-14 13:15] LABS: Alanine Aminotransferase 16 U/L (7-40); Albumin 4.1 g/dL (3.2-4.8); Alkaline Phosphatase 90 U/L (46-116); Anion Gap 9 (5-15); Aspartate Aminotransferase 18 U/L (13-40); BUN/Creatinine Ratio 17.8 (10.0-20.0); Blood Urea Nitrogen 16 mg/dL (9-23); Calcium 9.3 mg/dL (8.7-10.4); Carbon Dioxide 27 mmol/L (20-31); Chloride 100 mmol/L (98-107); Glucose 103 mg/dL (74-106); Sodium 136 mmol/L (136-145)
[2024-06-14 13:16] LABS: Bilirubin, Total 0.3 mg/dL (0.2-1.0); Total Protein 6.5 g/dL (5.7-8.2)
--- NOTE | 2024-06-14 13:36 | DVHPN2 ---
Progress Note - Dictate Date Seen: Jun 14, 2024 Has the PT tested + for MRSA If YES, has PT been informed?: Yes Medical Necessity Reason Pt with a Central, PICC or Fol: No The following are medically ne: Dietz Catheter Subjective Patient complaining of abdominal distention and generalized malaise. vital signs Vital Sign Date Time Temp Pulse Resp B/P (MAP) Pulse Ox O2 Delivery O2 Flow Rate FiO2 06/14/24 11:30 82 16 100 06/14/24 10:00 Nasal Cannula* 3 32 06/14/24 09:00 97.7 131/77 (95) 97.7 Total Intake and Output 06/13/24 06/13/24 06/14/24 15:00 23:00 07:00 Intake Total 250 ml 350 ml 450 ml Output Total 1325 ml 300 ml Balance 250 ml -975 ml 150 ml medications Current Medications Medications Dose Ordered Sig/Noe Route Start Time Stop Time Status Last Admin Dose Admin Acetaminophen 325 mg Q4HP PRN PO 06/11/24 15:15 Acetaminophen/ Hydrocodone Bitart 1 tab Q4HP PRN PO 06/11/24 15:15 06/14/24 09:00 1 TAB Enoxaparin Sodium 30 mg DAILY SC 06/12/24 10:00 06/14/24 10:28 30 MG Morphine Sulfate 2 mg Q4HPRN PRN IV 06/11/24 15:15 06/12/24 01:34 2 MG Nitroglycerin 0.4 mg Q5MINP PRN SL 06/11/24 15:15 Morphine Sulfate 2 mg Q30M PRN IV 06/11/24 15:15 06/12/24 17:06 2 MG Methylprednisolone Sodium Succinate 80 mg DAILY IV 06/11/24 15:15 06/14/24 10:27 80 MG Guaifenesin/ Codeine Phosphate 5 ml Q8HP PO 06/11/24 15:30 06/14/24 05:32 5 ML Albuterol 5 mg Q6HR NEB 06/11/24 18:00 06/14/24 11:28 5 MG Ipratropium [place] 0.5 mg Q6HR NEB 06/11/24 18:00 06/14/24 11:28 0.5 MG Levofloxacin 750 mg Q48H PO 06/11/24 20:00 2/11/25 20:40 750 MG Azithromycin 250 ml @ 125 mls/hr DAILY IV 06/12/24 10:00 06/14/24 10:29 125 MLS/HR objective General appearance: Frail appearing Respiratory: Coarse breath sounds Cardiovascular: Regular rate and rhythm, no murmurs. No edema Abdomen: Significantly distended this AM, tympanic. No acute abdominal signs MSK: Normal range of motion. Neuro: Alert Psych: Appropriate mood and affect. laboratory and microbiology Laboratory Tests 06/14/24 11:34 06/14/24 09:58 Test 06/14/24 09:58 Range/Units Serum Glucose 103 74-106 mg/dL Assessment/Plan Primary Diagnosis 1. Multifocal Pneumonia 2' Diagnosis/Co-morbidities 2. History of COPD 3. Concern for Underlying CHF 4. History of bladder cancer with [place] Pouch Creation Plan -Pulmonary consulted, Dr. Martin -CT chest consistent with pneumonia, pleural effusion -Cardiology consulted, Dr. Madrid. TTE ordered -Levaquin 750mg IV qdaily. Azithromycin 500mg IV daily for 3 days added for anti-inflammation -Duonebs, solumedrol as scheduled -Strict I/O -Nephrology consulted for KASSIE, stabilizing -Urology consulted for bilateral hydronephrosis. Dietz placed. -NM renal scan pending -Influenza/COVID ordered, negative -Pain medications listed per JUL -General surgery, Dr. Dong consulted for bowel distension 9.5cm on KUB. No NG tube recommended at this time. -Plan to DC to SNF once medically stabilized -Full Code Dietary Evaluation Review Recommendations by RD: Dietary education by RD Plan discussed with: Patient Respiratory Effort: Non-Labored Heart Sounds: S1 & S2 Breath sounds: Rales, Diminished Skin Moisture: Moist HUAN HERNANDEZ DO Jun 14, 2024 13:36
--- NOTE | 2024-06-14 14:33 | ECG ---
[facility] Test Date: 2024-06-12 Test Time: 16:53:42 Pat Name: JATIN REYES Department: Room: [facility] Gender: F Sales Floor Manager: ELENA : 1940 Requested By: HUAN HERANNDEZ Order Number: [id number] Reading MD: Jordan Berman Measurements Intervals [place]ba Rate: 64 P: -76 VT: 226 QRS: -15 QRSD: 96 T: 54 QT: 467 QTc: 482 Interpretive Statements Sinus or ectopic atrial rhythm Borderline prolonged VT interval Anterior infarct, old Electronically Signed On 06-15-2024 9:27:17 PST by Jordan Berman Please click the below link to view image of tracing.
--- NOTE | 2024-06-14 14:54 | DVH ---
EXAM: NM NM MAG3 RENAL SCAN DATE OF SERVICE: 06/14/2024 11:30 AM ORDERING PHYSICIAN: HUAN HERNANDEZ REASON FOR EXAM: Bilateral hydronephrosis TECHNIQUE: During the injection of radiopharmaceutical, posterior flow images of the kidneys were ac quired immediately at one frame per second for one minute, immediately followed by posterior imaging at 30 seconds per frame for 30 minutes. Approximately 20 minutes after the radiopharmaceutical admini stration, the indicated dose of lasix was administered. Regions of interest were drawn around the kid neys and time activity curves were generated. Differential function was calculated. COMPARISON: None FINDINGS: Blood flow images demonstrate delayed and asymmetric flow to kidneys with no focal defects. Functional images demonstrate a cortical transit time ([id number]) of 8.3 on the right and 14.3 on the left (normal is < 6 minutes). There is no adequate spontaneous excretion from the kidneys. Differential function (uptake %) is 39.6 % by the right kidney and 60.4 % by the left kidney. After Lasix administration, there was adequate and prompt excretion from both collecting systems. The post-Lasix half-emptying time (diuretic T1/2) was 10.5 minutes on the right and 29.04 minutes on the left, which is within normal limits. IMPRESSION: 1. Delayed flow and excretion of the right kidney with adequate response to the diuretic favored func tional obstruction. 2. Delayed flow and excretion of the left kidney without adequate response to the diuretic favored pa rtial versus high grade mechanical obstruction. 3. Differential renal function (uptake percent) of 39.6 % by the right kidney and 60.4 % by the left.
[2024-06-14] MEDS: POTASSIUM EFFERVESENT TAB 25 MEQ GT ONE (17:57)
--- NOTE | 2024-06-14 22:10 | DVHPN2 ---
Progress Note - Dictate Date Seen: Jun 14, 2024 Has the PT tested + for MRSA If YES, has PT been informed?: Yes Medical Necessity Reason Pt with a Central, PICC or Fol: No The following are medically ne: Dietz Catheter Subjective Patient was seen and evaluated in follow up. Patient is complaining of abdominal pain. Patient is stable on 3 LPM NC. KUB revealed gaseous distention in the mid abdomen measuring 9.5 cm. CM is working on SNF placement. Telemetry reviewed. vital signs Vital Sign Date Time Temp Pulse Resp B/P (MAP) Pulse Ox O2 Delivery O2 Flow Rate FiO2 06/14/24 11:30 82 16 100 06/14/24 09:00 97.7 131/77 (95) 97.7 06/14/24 05:48 Nasal Cannula 3.0 06/14/24 05:48 32 Total Intake and Output 06/13/24 06/13/24 06/14/24 15:00 23:00 07:00 Intake Total 250 ml 350 ml 450 ml Output Total 1325 ml 300 ml Balance 250 ml -975 ml 150 ml medications Current Medications Medications Dose Ordered Sig/Noe Route Start Time Stop Time Status Last Admin Dose Admin Acetaminophen 325 mg Q4HP PRN PO 06/11/24 15:15 Acetaminophen/ Hydrocodone Bitart 1 tab Q4HP PRN PO 06/11/24 15:15 06/14/24 09:00 1 TAB Enoxaparin Sodium 30 mg DAILY SC 06/12/24 10:00 06/14/24 10:28 30 MG Morphine Sulfate 2 mg Q4HPRN PRN IV 06/11/24 15:15 06/12/24 01:34 2 MG Nitroglycerin 0.4 mg Q5MINP PRN SL 06/11/24 15:15 Morphine Sulfate 2 mg Q30M PRN IV 06/11/24 15:15 06/12/24 17:06 2 MG Methylprednisolone Sodium Succinate 80 mg DAILY IV 06/11/24 15:15 06/14/24 10:27 80 MG Guaifenesin/ Codeine Phosphate 5 ml Q8HP PO 06/11/24 15:30 06/14/24 05:32 5 ML Albuterol 5 mg Q6HR NEB 06/11/24 18:00 06/14/24 11:28 5 MG Ipratropium [place] 0.5 mg Q6HR NEB 06/11/24 18:00 06/14/24 11:28 0.5 MG Levofloxacin 750 mg Q48H PO 06/11/24 20:00 06/13/24 20:40 750 MG Azithromycin 250 ml @ 125 mls/hr DAILY IV 06/12/24 10:00 06/14/24 10:29 125 MLS/HR objective GENERAL: Awake, alert, oriented. Frail appearing. LUNGS: Coarse breath sounds. CARDIOVASCULAR: Heart sounds are good. ABDOMEN: Soft. laboratory and microbiology Test 06/14/24 09:58 Range/Units Serum Glucose Pending Problem List Multifocal pneumonia. History of COPD. Elevated BNP. Assessment/Plan Continued all current supportive medical care. Echocardiogram. Morphine and [place] for pain management. IV antibiotics as ordered. DVT prophylactics. Additional plan as per the hospital course. Dietary Evaluation Review Recommendations by RD: Dietary education by RD Plan discussed with: Patient Respiratory Effort: Non-Labored Heart Sounds: S1 & S2 Breath sounds: Rales, Diminished Skin Moisture: Moist LEXIE TAVARES MD Jun 14, 2024 12:25
[2024-06-15] VITALS (15 sets, daily range): BP systolic 125–138; BP diastolic 69–91; PULSE 60–97; RESP 16–20; TEMP 97.4–97.9; O2SAT 92–100
--- NOTE | 2024-06-15 07:27 | DVHINCON2 ---
DATE OF CONSULTATION: 06/15/2024 REFERRING PHYSICIAN: Dr. Onesimo Tobar CONSULTING PHYSICIAN: Jatin Dong MD REASON FOR CONSULTATION: Abdominal distention. HISTORY OF PRESENT ILLNESS: The patient is an 84-year-old female who came to the Emergency Department complaining of shortness of breath with associated productive cough. During her hospital stay, she was noted to have significant abdominal distention, therefore, surgical consultation was requested. The patient is currently admitted with a diagnosis of pneumonia. She complains of recent episode of chest pain and whole bodily pain. She admits to some episode of nausea, without vomiting. She is still significantly short of breath. Admitted to abdominal distention. However, she is still passing flatus and having soft bowel movements, described as muddy. Denied fevers, chills, hemoptysis, hematemesis, bilious emesis, chest pain, shortness of breath, unintentional weight loss, night sweats, melena or hematochezia. Her last colonoscopy was approximately 5 years ago described as normal. PAST MEDICAL HISTORY: Consistent with severe COPD, hypertension, hyperlipidemia, hypothyroidism, bladder cancer, lymphoma. PAST SURGICAL HISTORY: Appendectomy, cystectomy with [place] pouch, cholecystectomy, bilateral mastectomy, total abdominal hysterectomy, bilateral salpingo-oophorectomy, tonsillectomy. MEDICATIONS: She does not recall the names of her medications. Per medication administration record, she is currently receiving Zithromax, Tylenol, albuterol, prophylactic subcutaneous Lovenox, Lasix, Robitussin, [place], Atrovent, Levaquin, Solu-Medrol, p.r.n. morphine, nitroglycerin. ALLERGIES: TO PENICILLIN AND SULFA. SOCIAL HISTORY: Denies smoking cigarettes, alcohol use, drug use, marijuana use or vaping. Admits to remote history of smoking cigarettes. She quit 25 years ago. She reports a 5-pack-year history of smoking. FAMILY HISTORY: Noncontributory. REVIEW OF SYSTEMS: NEUROLOGIC: Negative. PSYCHIATRIC: Negative. ENDOCRINE: Negative. ENT: Negative. CARDIOVASCULAR: As above. PULMONARY: As above. GASTROINTESTINAL: As above. HEMATOLOGIC/INFECTIOUS DISEASE: Negative MUSCULOSKELETAL: Negative. SKIN: Negative. PHYSICAL EXAMINATION: GENERAL: She is lying comfortably in bed. She is calm, pleasant and in no distress. She is evidently short of breath and speaks in one-sentence conversations. She coughs on occasion with evidence of phlegm. NEUROLOGIC: Grossly intact, alert, awake, oriented x3. HEAD, EARS, EYES, NOSE AND THROAT: Normocephalic. Pupils equally round. Extraocular muscles intact. Trachea is midline. HEART: Normal heart rate and blood pressure with episodes of hypertension. LUNGS: Dyspneic. Normal respiratory rate with episodes of low oxygen saturation. Receiving supplemental oxygen via nasal cannula at 3 liters per minute. ABDOMEN: Soft, distended, nontender. Well-healed midline scars. Reducible left lower quadrant abdominal hernia. EXTREMITIES: No edema or tenderness. RECTAL EXAM: No palpable masses or blood in the rectal vault. No external or internal rectal abnormalities. LABORATORY DATA: I reviewed her labs, it demonstrated white blood cell count of 9, hemoglobin 11, hematocrit 35, platelets 293. Chemistry essentially remarkable for hypokalemia of 3. I reviewed her CT scan of the abdomen and pelvis with corresponding report. The patient demonstrates postoperative findings consistent with [place] pouch with significant dilatation of the transverse colon with air-fluid levels, previous cholecystectomy, bilateral pleural effusions with right-sided atelectasis, CAD and severe aortoiliac atherosclerosis. No evidence of obstruction. Abdominal x-ray reveals gaseous distention of the transverse colon consistent with the previous CT scan. ASSESSMENT: An 84-year-old female with abdominal distention without nausea or vomiting. The patient is still having bowel movements. Rectal examination was negative. Rule out partial large bowel obstruction. PLANS AND RECOMMENDATIONS: I had a very lengthy discussion with the patient. I have recommended a small bowel series to observe passage of contrast to determine whether there is a partial obstructive process. If this does not demonstrate any abnormalities and the signs/symptoms improved, she may be discharged to home. However, if she remains distended or there are signs of obstruction, she will require a colonoscopy. This was discussed with the patient. She understands and agrees. Recommend continuing current management, DVT and GI prophylaxis, n.p.o. for now, IV fluids. Thank you for allowing me to participate in the care of your patient. I will follow her with you. MD SRINI Coronado/ANGELICA TID: [id number] RECEIPT: [id number]
[2024-06-15 07:28] LABS: Basophils # (auto) 0 10 ^3/uL (0-0.2); Basophils % (auto) 0.1 % (0.0-2.0); Eosinophils # (auto) 0 10 ^3/uL (0-0.8); Eosinophils % (auto) 0.4 % (0.0-7.0); Hematocrit 39.8 % (36.0-46.0); Hemoglobin 12.8 g/dL (12.2-16.2); Lymphocytes # (auto) 0.9 10 ^3/uL (0.4-5.4); Mean Corpuscular Hemoglobin 27.6 pg (28.0-32.0); Mean Corpuscular Hgb Conc. 32.3 g/dL (32.0-36.0); Mean Corpuscular Volume 85.6 fL (80.0-100.0); Monocytes # (auto) 0.5 10 ^3/uL (0-1.3); Monocytes % (auto) 11.5 % (0.0-12.0); Neutrophils # (auto) 3.3 10 ^3/uL (1.6-8.6); Nucleated Red Blood Cells % 0.1 %; Platelet Count (auto) 309 10^3/uL (140-450); Red Blood Cells 4.65 10^6/uL (4.0-5.20); Red Cell Distribution Width 18.8 % (11.8-14.3); White Blood Cell 4.7 10^3/uL (4.4-10.8)
[2024-06-15 07:55] LABS: Alanine Aminotransferase 14 U/L (7-40); Albumin 4.6 g/dL (3.2-4.8); Alkaline Phosphatase 99 U/L (46-116); Anion Gap 9 (5-15); Aspartate Aminotransferase 16 U/L (13-40); Blood Urea Nitrogen 15 mg/dL (9-23); Calcium 9.9 mg/dL (8.7-10.4); Carbon Dioxide 31 mmol/L (20-31); Chloride 93 mmol/L (98-107); Glucose 77 mg/dL (74-106); Potassium 3.3 mmol/L (3.5-5.1); Sodium 133 mmol/L (136-145); Total Protein 7.2 g/dL (5.7-8.2)
[2024-06-15] MEDS: GASTROGRAFIN 120 ML SOL ONE (08:21)
--- NOTE | 2024-06-15 10:06 | DVHPN2 ---
Progress Note Date Seen: Jun 15, 2024 Has the PT tested + for MRSA If YES, has PT been informed?: Yes Medical Necessity Reason Pt with a Central, PICC or Fol: No The following are medically ne: Dietz Catheter Subjective Review of Systems: RESPIRATORY:Abnormal Other Systems: Patient seen and examined by myself today in follow-up Objective vital signs Vital Sign Date Time Temp Pulse Resp B/P (MAP) Pulse Ox O2 Delivery O2 Flow Rate FiO2 06/15/24 06:36 67 18 97 06/15/24 06:30 Nasal Cannula 3.0 06/15/24 06:30 32 06/15/24 05:00 97.9 132/72 (92) 97.9 Total Intake and Output 06/14/24 06/14/24 06/15/24 15:00 23:00 07:00 Intake Total 250 ml 300 ml Balance 250 ml 300 ml medications Current Medications Medications Dose Ordered Sig/Noe Route Start Time Stop Time Status Last Admin Dose Admin Acetaminophen 325 mg Q4HP PRN PO 06/11/24 15:15 Acetaminophen/ Hydrocodone Bitart 1 tab Q4HP PRN PO 06/11/24 15:15 06/15/24 05:52 1 TAB Enoxaparin Sodium 30 mg DAILY SC 06/12/24 10:00 06/15/24 09:43 30 MG Morphine Sulfate 2 mg Q4HPRN PRN IV 06/11/24 15:15 06/15/24 01:15 2 MG Nitroglycerin 0.4 mg Q5MINP PRN SL 06/11/24 15:15 Morphine Sulfate 2 mg Q30M PRN IV 06/11/24 15:15 06/12/24 17:06 2 MG Methylprednisolone Sodium Succinate 80 mg DAILY IV 06/11/24 15:15 06/15/24 09:42 80 MG Guaifenesin/ Codeine Phosphate 5 ml Q8HP PO 06/11/24 15:30 06/15/24 05:49 5 ML Albuterol 5 mg Q6HR NEB 06/11/24 18:00 06/15/24 06:30 5 MG Ipratropium [place] 0.5 mg Q6HR NEB 06/11/24 18:00 06/15/24 06:30 0.5 MG Levofloxacin 750 mg Q48H PO 06/11/24 20:00 06/13/24 20:40 750 MG Azithromycin 250 ml @ 125 mls/hr DAILY IV 06/12/24 10:00 06/15/24 09:43 125 MLS/HR Examination: LUNGS:Normal, CVS:Normal, MSK:Normal laboratory and microbiology Laboratory Tests 06/15/24 06:45 Test 06/15/24 06:45 Range/Units Serum Glucose 77 74-106 mg/dL Microbiology Date/Time Source Procedure Growth Status 06/11/24 22:01 Nose MRSA Screen - Final Complete 06/11/24 11:38 Blood Blood Culture - Preliminary NO GROWTH AFTER 72 HOURS OF INCUBATION. 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 obstruction Bilateral hydronephrosis Multifocal pneumonia CHF exacerbation Hypokalemia Anemia of CKD REC: Kidney function resolved back to normal Increased urine output Dietz catheter Strict I&Os Kidney ultrasound reported bilateral hydronephrosis IV antibiotics KCl replacement Pulmonary consult Cardiology consult Urology consult I will sign off this case, please reconsult as needed Thank you for the consult Plan discussed with: Patient My Orders My Orders Orders - TRICIA HARE MD Procedure Category Date Status Time Potassium Effervesent PHA 06/15/24 Transmitted Tab (Klor-Con/Ef) 10:15 Dietary Evaluation Review Recommendations by RD: Dietary education by DRAGAN Sepsis reassessment post fluid Respiratory Effort: Non-Labored Heart Sounds: S1 & S2 Breath sounds: Rales, Diminished Skin Moisture: Moist TRICIA HARE MD Jun 15, 2024 10:06
[2024-06-15] MEDS: POTASSIUM EFFERVESENT TAB 25 MEQ PO ONE (10:15)
[2024-06-15 12:46] LABS: Bilirubin, Total 0.5 mg/dL (0.2-1.0)
--- NOTE | 2024-06-15 14:23 | DVHPN2 ---
Progress Note - Dictate Date Seen: Jun 15, 2024 Has the PT tested + for MRSA If YES, has PT been informed?: Yes Medical Necessity Reason Pt with a Central, PICC or Fol: No The following are medically ne: Dietz Catheter Subjective Patient was seen and evaluated in follow up. Patient is complaining of chest pain. Patient on 3 LPM NC. K 3.3, potassium was replaced. SBS is pending. Telemetry reviewed. vital signs Vital Sign Date Time Temp Pulse Resp B/P (MAP) Pulse Ox O2 Delivery O2 Flow Rate FiO2 06/15/24 11:08 76 20 119/84 06/15/24 10:21 94 Nasal Cannula 3.0 06/15/24 10:21 32 06/15/24 05:00 97.9 97.9 Total Intake and Output 06/14/24 06/14/24 06/15/24 15:00 23:00 07:00 Intake Total 250 ml 300 ml Balance 250 ml 300 ml medications Current Medications Medications Dose Ordered Sig/Noe Route Start Time Stop Time Status Last Admin Dose Admin Acetaminophen 325 mg Q4HP PRN PO 06/11/24 15:15 Acetaminophen/ Hydrocodone Bitart 1 tab Q4HP PRN PO 06/11/24 15:15 06/15/24 05:52 1 TAB Enoxaparin Sodium 30 mg DAILY SC 06/12/24 10:00 06/15/24 09:43 30 MG Morphine Sulfate 2 mg Q4HPRN PRN IV 06/11/24 15:15 06/15/24 11:08 2 MG Nitroglycerin 0.4 mg Q5MINP PRN SL 06/11/24 15:15 Morphine Sulfate 2 mg Q30M PRN IV 06/11/24 15:15 06/12/24 17:06 2 MG Methylprednisolone Sodium Succinate 80 mg DAILY IV 06/11/24 15:15 06/15/24 09:42 80 MG Guaifenesin/ Codeine Phosphate 5 ml Q8HP PO 06/11/24 15:30 06/15/24 05:49 5 ML Albuterol 5 mg Q6HR NEB 06/11/24 18:00 06/15/24 06:30 5 MG Ipratropium [place] 0.5 mg Q6HR NEB 06/11/24 18:00 06/15/24 06:30 0.5 MG Levofloxacin 750 mg Q48H PO 06/11/24 20:00 06/13/24 20:40 750 MG Azithromycin 250 ml @ 125 mls/hr DAILY IV 06/12/24 10:00 06/15/24 09:43 125 MLS/HR objective GENERAL: Awake, alert, oriented. Frail appearing. LUNGS: Coarse breath sounds. CARDIOVASCULAR: Heart sounds are good. ABDOMEN: Soft. laboratory and microbiology Laboratory Tests 06/15/24 06:45 Test 06/15/24 06:45 Range/Units Serum Glucose 77 74-106 mg/dL Problem List Multifocal pneumonia. History of COPD. Elevated BNP. Assessment/Plan Continued all current supportive medical care. Echocardiogram. Morphine and [place] for pain management. IV antibiotics as ordered. DVT prophylactics. Additional plan as per the hospital course. Dietary Evaluation Review Recommendations by RD: Dietary education by RD Plan discussed with: Patient Respiratory Effort: Non-Labored Heart Sounds: S1 & S2 Breath sounds: Rales, Diminished Skin Moisture: Moist LEXIE TAVARES MD Jun 15, 2024 12:54
--- NOTE | 2024-06-15 15:34 | DVH ---
Procedure: XY SMALL BOWEL SERIES-W GASTROGRA Exam Date: 06/15/2024 02:59 PM Reason for study/Clinical History: SBO Comparison Study: None available at time of dictation. Technique: Single contrast small bowel series performed. Findings: Initial utilization review nurse view of the abdomen and pelvis appears demonstrates no acute process. Contrast is identified within the colon by 1 hour . This represents a normal small bowel transit consuelo e. IMPRESSION: Normal small bowel series. END IMPRESSION:
[2024-06-15] MEDS ORDERED: AUG875T PO (19:03)
[2024-06-16] VITALS (13 sets, daily range): BP systolic 130–140; BP diastolic 64–84; PULSE 67–96; RESP 16–22; TEMP 97.8–98.2; O2SAT 95–99
--- NOTE | 2024-06-16 06:12 | DVHDS2 ---
New Physician D'charge PN Admitting Diagnosis Admitting Diagnosis pna Discharge Diagnosis mutlifocal pna respiratory failure on NC Operations or Procedures small bowel series Reason(s) For Hospitalization Surgery Hospital Course 84 F who was admitted for worsening SOB and was diagnosed with PNA at an outside hospital and despite being on PO ABx her condition worsened. She was transferred to [facility] ER for further care and admitted to this hospital for multifocal PNA with failed outpt treatment. She was admitted started on broad spectrum IV Abx and her blood cultures were negative. She was seen by pulmonary and remained on nasal cannula 3L/min. Day to day her condition improved respiratory olivas and currently she is still on 3L NC. She was seen by nephrology and had KASSIE however with hydration the KASSIE resolved. She was evaluated by surgery for abdominal distension and underwent SBFT which revealed no SBO and this was advanced to a solid diet. SHe was also seen by cardiology and no cardiac recommendations were given as she was stable cardiac olivas. She is still weak and will need SNF for PT. [facility] to arrange for SNF bed and transport and patient to be discharged to SNF today. Scripts for PO Abx Doxycycline 100 bid x10 days at SNF will be sent. SHe will continue her o2 at 3L NC. Treatment Plan Discharge Condition of Discharge Good Disposition Long-Term Facility Discharge Instructions Diet: Cardiac 2g Na,low cholest Activity: No Restrictions, As Tolerated Medications: see med sheet Follow Up Care Follow Up/Referral: pcp pulm Discharge Statement: "Patient was advised to return to the ER or call 911 if any headaches, dizziness, shortness of breath, chest pain, abdominal pain, bleeding, fevers, or worsening of medical condition. Patient was counseled about treatment plan, medications, possible side effects, patientverbalized understanding. All questions were answered to the best of my ability. This discharge took greater then 30 minutes in planning, reviewing documentation, counseling the patient, and discussing with other team members." ANU JI MD Jun 16, 2024 06:12
--- NOTE | 2024-06-16 06:20 | DVH ---
EXAM: XR Abdomen, 1 View CLINICAL INDICATION: sbo TECHNIQUE: Frontal supine view of the abdomen/pelvis. COMPARISON: XY KUB ABDOMEN SINGLE VIEW on DOS: 06/14/24 FINDINGS: GASTROINTESTINAL TRACT: Multiple gaseous distention of the bowel, largest measuring up to 6.2 cm, c oncerning for at least a partial bowel obstruction. BONES/JOINTS: Unremarkable. No acute fracture. OTHER FINDINGS: . . . .. IMPRESSION: Multiple gaseous distention of the bowel, largest measuring up to 6.2 cm, concerning for at least a partial bowel obstruction.
--- NOTE | 2024-06-16 06:36 | DVHPN2 ---
Progress Note Date Seen: Jun 16, 2024 Has the PT tested + for MRSA If YES, has PT been informed?: Yes Medical Necessity Reason Pt with a Central, PICC or Fol: No The following are medically ne: Dietz Catheter Subjective Review of Systems Pt feels well. Had several episode of diarrhea yesterday. Denies abdominal pain and vloating has improved. She tolerated diet. Objective vital signs Vital Sign Date Time Temp Pulse Resp B/P (MAP) Pulse Ox O2 Delivery O2 Flow Rate FiO2 06/16/24 05:00 98.1 96 18 132/84 (100) 97 98.1 06/16/24 00:20 Nasal Cannula 3.0 06/16/24 00:20 32 Total Intake and Output 06/15/24 06/15/24 06/16/24 15:00 23:00 07:00 Intake Total 250 ml 1000 ml Output Total 1200 ml Balance 250 ml -200 ml medications Current Medications Medications Dose Ordered Sig/Noe Route Start Time Stop Time Status Last Admin Dose Admin Acetaminophen 325 mg Q4HP PRN PO 06/11/24 15:15 Acetaminophen/ Hydrocodone Bitart 1 tab Q4HP PRN PO 06/11/24 15:15 06/16/24 04:52 1 TAB Enoxaparin Sodium 30 mg DAILY SC 06/12/24 10:00 06/15/24 09:43 30 MG Morphine Sulfate 2 mg Q4HPRN PRN IV 06/11/24 15:15 06/15/24 11:08 2 MG Nitroglycerin 0.4 mg Q5MINP PRN SL 06/11/24 15:15 Morphine Sulfate 2 mg Q30M PRN IV 06/11/24 15:15 06/12/24 17:06 2 MG Methylprednisolone Sodium Succinate 80 mg DAILY IV 06/11/24 15:15 06/15/24 09:42 80 MG Guaifenesin/ Codeine Phosphate 5 ml Q8HP PO 06/11/24 15:30 06/16/24 06:24 5 ML Albuterol 5 mg Q6HR NEB 06/11/24 18:00 06/16/24 00:20 5 MG Ipratropium [place] 0.5 mg Q6HR NEB 06/11/24 18:00 06/16/24 00:20 0.5 MG Levofloxacin 750 mg Q48H PO 06/11/24 20:00 06/15/24 20:31 750 MG Azithromycin 250 ml @ 125 mls/hr DAILY IV 06/12/24 10:00 06/15/24 09:43 125 MLS/HR Examination AFVSS. Abdomen soft, ND and minimally distended. SBS reviewed. No evidence of LBO. F/U AXR reveals residual gaseous distention of the colon, complete passage of contrast. laboratory and microbiology Laboratory Tests 06/15/24 06:45 Test 06/15/24 06:45 Range/Units Serum Glucose 77 74-106 mg/dL Microbiology Date/Time Source Procedure Growth Status 06/11/24 22:01 Nose MRSA Screen - Final Complete 06/11/24 11:38 Blood Blood Culture - Preliminary NO GROWTH AFTER 72 HOURS OF INCUBATION. Resulted Labs and/or images reviewed: Labs reviewed by me, Image(s) reviewed by me Problem List/Assessment/Plan Problems(with codes): (1) Colon distention Problem List/Assessment/Plan Pt may be D/C from surgical standpoint when medically stable. Recommend considering colonoscopy as oupt. Plan discussed with: Patient, Other (Dr. Solorzano) Dietary Evaluation Review Recommendations by RD: Dietary education by RD Sepsis reassessment post fluid Respiratory Effort: Non-Labored Heart Sounds: S1 & S2 Breath sounds: Rales, Diminished Skin Moisture: Moist TARSHA BARNES MD Jun 16, 2024 06:36
[2024-06-16 07:32] LABS: Alanine Aminotransferase 21 U/L (7-40); Albumin 4.5 g/dL (3.2-4.8); Alkaline Phosphatase 97 U/L (46-116); Anion Gap 7 (5-15); Aspartate Aminotransferase 22 U/L (13-40); BUN/Creatinine Ratio 27.6 (10.0-20.0); Bilirubin, Total 0.4 mg/dL (0.2-1.0); Blood Urea Nitrogen 27 mg/dL (9-23); Carbon Dioxide 31 mmol/L (20-31); Chloride 97 mmol/L (98-107); Glucose 72 mg/dL (74-106); Potassium 3.6 mmol/L (3.5-5.1); Sodium 135 mmol/L (136-145)
[2024-06-16 07:53] LABS: Basophils # (auto) 0 10 ^3/uL (0-0.2); Basophils % (auto) 0.2 % (0.0-2.0); Eosinophils # (auto) 0 10 ^3/uL (0-0.8); Eosinophils % (auto) 0.2 % (0.0-7.0); Hematocrit 36.5 % (36.0-46.0); Hemoglobin 11.8 g/dL (12.2-16.2); Lymphocytes # (auto) 0.8 10 ^3/uL (0.4-5.4); Lymphocytes % (auto) 14.4 % (10.0-50.0); Mean Corpuscular Hemoglobin 27.6 pg (28.0-32.0); Mean Corpuscular Hgb Conc. 32.4 g/dL (32.0-36.0); Mean Corpuscular Volume 85.2 fL (80.0-100.0); Monocytes # (auto) 0.6 10 ^3/uL (0-1.3); Neutrophils # (auto) 4.5 10 ^3/uL (1.6-8.6); Neutrophils % (auto) 75.2 % (37.0-80.0); Nucleated Red Blood Cells % 0.2 %; Platelet Count (auto) 285 10^3/uL (140-450); Red Blood Cells 4.28 10^6/uL (4.0-5.20); Red Cell Distribution Width 18.3 % (11.8-14.3); White Blood Cell 5.9 10^3/uL (4.4-10.8)
--- NOTE | 2024-06-16 13:50 | DVHPN2 ---
Progress Note - Dictate Date Seen: Jun 16, 2024 Has the PT tested + for MRSA If YES, has PT been informed?: Yes Medical Necessity Reason Pt with a Central, PICC or Fol: No The following are medically ne: Dietz Catheter Subjective Patient was seen and evaluated in follow up. Patient reports having several episodes of diarrhea yesterday. Patient is tolerating current diet. BUN 27. SBS is unremarkable. Chest/ABD x-ray shows multiple gaseous distention of the bowel, largest measuring up to 6.2 cm, concerning for at least a partial bowel obstruction. Telemetry reviewed. vital signs Vital Sign Date Time Temp Pulse Resp B/P (MAP) Pulse Ox O2 Delivery O2 Flow Rate FiO2 06/16/24 11:14 82 16 97 06/16/24 11:04 Nasal Cannula 3.0 06/16/24 11:04 32 06/16/24 09:00 98.0 138/64 (88) 98.0 Total Intake and Output 06/15/24 06/15/24 06/16/24 15:00 23:00 07:00 Intake Total 250 ml 1000 ml Output Total 1200 ml Balance 250 ml -200 ml medications Current Medications Medications Dose Ordered Sig/Noe Route Start Time Stop Time Status Last Admin Dose Admin Acetaminophen 325 mg Q4HP PRN PO 06/11/24 15:15 Acetaminophen/ Hydrocodone Bitart 1 tab Q4HP PRN PO 06/11/24 15:15 06/16/24 04:52 1 TAB Enoxaparin Sodium 30 mg DAILY SC 06/12/24 10:00 06/16/24 09:37 30 MG Morphine Sulfate 2 mg Q4HPRN PRN IV 06/11/24 15:15 06/15/24 11:08 2 MG Nitroglycerin 0.4 mg Q5MINP PRN SL 06/11/24 15:15 Morphine Sulfate 2 mg Q30M PRN IV 06/11/24 15:15 06/12/24 17:06 2 MG Methylprednisolone Sodium Succinate 80 mg DAILY IV 06/11/24 15:15 06/16/24 09:37 80 MG Guaifenesin/ Codeine Phosphate 5 ml Q8HP PO 06/11/24 15:30 06/16/24 06:24 5 ML Albuterol 5 mg Q6HR NEB 06/11/24 18:00 06/16/24 11:04 5 MG Ipratropium [place] 0.5 mg Q6HR NEB 06/11/24 18:00 06/16/24 11:04 0.5 MG Levofloxacin 750 mg Q48H PO 06/11/24 20:00 06/15/24 20:31 750 MG Azithromycin 250 ml @ 125 mls/hr DAILY IV 06/12/24 10:00 06/16/24 09:36 125 MLS/HR objective GENERAL: Awake, alert, oriented. Frail appearing. LUNGS: Coarse breath sounds. CARDIOVASCULAR: Heart sounds are good. ABDOMEN: Soft. laboratory and microbiology Laboratory Tests 06/16/24 06:52 Test 06/16/24 06:52 Range/Units Serum Glucose 72 L 74-106 mg/dL Problem List Multifocal pneumonia. History of COPD. Elevated BNP. Assessment/Plan Continued all current supportive medical care. Echocardiogram. Morphine and [place] for pain management. IV antibiotics as ordered. DVT prophylactics. Additional plan as per the hospital course. Dietary Evaluation Review Recommendations by RD: Dietary education by RD Plan discussed with: Patient Respiratory Effort: Non-Labored Heart Sounds: S1 & S2 Breath sounds: Rales, Diminished Skin Moisture: Moist LEXIE TAVARES MD Jun 16, 2024 11:32
== END 2024-06-16 15:20 | DRG 177 ==
LOC: ER 08:21 → TELE 15:10 → TELE-WESTW 21:43 → OVERFLOW 06-13 15:24 → WEST WING 06-13 15:45 → OVERFLOW 06-14 13:16 → TELE-WESTW 06-14 13:31
PROVIDERS: ADMIT Student in an Organized Health Care Education/Training Program; ATTEND Student in an Organized Health Care Education/Training Program
DX: J15.69 Pneumonia due to other Gram-negative bacteria (principal); J96.00 Acute respiratory failure, unspecified whether with hypoxia or hypercapnia; N17.0 Acute kidney failure with tubular necrosis; J44.1 Chronic obstructive pulmonary disease with (acute) exacerbation; J90 Pleural effusion, not elsewhere classified; N13.30 Unspecified hydronephrosis; J44.0 Chronic obstructive pulmonary disease with (acute) lower respiratory infection; I13.0 Hypertensive heart and chronic kidney disease with heart failure and stage 1 through stage 4 chronic kidney disease, or unspecified chronic kidney disease; J15.9 Unspecified bacterial pneumonia; Z20.822 Contact with and (suspected) exposure to COVID-19; I50.9 Heart failure, unspecified; D63.1 Anemia in chronic kidney disease; E87.6 Hypokalemia; N18.9 Chronic kidney disease, unspecified; G89.29 Other chronic pain; E78.5 Hyperlipidemia, unspecified; E03.9 Hypothyroidism, unspecified; N13.9 Obstructive and reflux uropathy, unspecified; K63.89 Other specified diseases of intestine; Z87.891 Personal history of nicotine dependence; Z85.51 Personal history of malignant neoplasm of bladder; Z90.49 Acquired absence of other specified parts of digestive tract; Z90.13 Acquired absence of bilateral breasts and nipples; Z85.72 Personal history of non-Hodgkin lymphomas; Z90.710 Acquired absence of both cervix and uterus; Z99.81 Dependence on supplemental oxygen
CPT/HCPCS: 36415; 71045; 71250; 74018; 74176; 74250; 76775; 78707; 80053; 81001; 82306; 82570; 83605; 83735; 83880; 83970; 84100; 84156; 84300; 84484; 85007; 85025; 85027; 87040; 87081; 87426; 87804; 93005; 93306; 94640; 97110; 97116; 97163; 97530; G0378; J0692; J3480